=== PATIENT | female | born 1970 | race Caucasian/White ===

== ENCOUNTER 2017-07-25 09:03 | Emergency (ER) | payer BC, SELFPAY | END 2017-07-25 09:33 | disposition home or self-care (01) | PROVIDERS: Emergency Provider Nurse Practitioner Family; Visit Provider Nurse Practitioner Family | DX: J06.9 Acute upper respiratory infection, unspecified (principal); I10 Essential (primary) hypertension; I20.8 Other forms of angina pectoris; E78.5 Hyperlipidemia, unspecified; F17.210 Nicotine dependence, cigarettes, uncomplicated | CPT/HCPCS: 87880; 99201 ==

== ENCOUNTER 2017-08-17 18:57 | Emergency (ER) | payer BC, SELFPAY ==
[2017-08-17 19:08] VITALS: BP 196/135; PULSE 114; RESP 20; TEMP 37.4; O2SAT 95; BMI 30.9
--- NOTE | 2017-08-17 19:11 | HMH.EDUTC ---
[facility] [place]ression: Sore throat (viral) Disposition: Home, Self-Care Condition on Discharge: Good Instructions: Sore Throat Prescriptions: diphenhydrAMINE HCl [Benadryl Allergy] 25 mg PO BID 5 Days #10 tab Fluticasone Propionate [Flonase Allergy Relief NS] 1 spray NS BID 10 Days #1 bot predniSONE [Prednisone 20mg Tab] 20 mg PO BID 5 Days #10 tab Referrals: Provider,Referral, MD [Primary Care Provider] - Time of Disposition: 19:42 Medical Decision Making - Medical Records Medical records reviewed: Yes: I reviewed the patient's medical records. Vital Signs: 08/17/17 19:08 Temperature 99.4 F Temperature Source Temporal Artery Scan Pulse Rate [Brachial] 114 H Respiratory Rate 20 Blood Pressure [Right Arm] 196/135 Blood Pressure Mean [Right Arm] 155 Blood Pressure Source [Right Arm] Automatic Cuff Blood Pressure Position [Right Arm] Sitting 02 Sat by Pulse Oximetry 95 Oxygen Delivery Method Room Air - Lab Data Lab results reviewed: Yes: I reviewed the patient's lab results. Lab Results 08/17/17 19:22: Strep [facility] Negative Orders (Tests/Meds): ORDERS Category Date Time Status Strep Screen Confirmation Stat Micro 08/17/17 19:22 Received - Jesus Inquiry Pt receiving controlled substance: No [facility] [place] - General Stated complaint: sore throat Mode of Arrival: Ambulatory Source of Information: Patient Limitations: No Limitations Description of Symptoms (Recalled from Triage Doc. by RN): throat has been burning for 2 days. pt has not taken her bp meds today. HEENT Symptoms (Recalled from RN notes): Yes Resp Symptoms (Recalled from RN notes): No Skin Symptoms (Recalled from RN notes): No MS Symptoms (Recalled from RN notes): No Functional Status (Recalled from RN notes): na - History of Present Illness Provider Complaint: Sore throat x 2 days. Throat is raw and burning. Has had nosebleeds also. Denies ear pain. Denies cough. Not sure about fever. Denies N/V/D. Has been exposed to strep at work. Onset (ago): day(s) (2) Location: mouth Quality: burning Consistency: constant Relieving factors: none Exacerbating factors: eating Associated symptoms: denies other symptoms Treatments prior to arrival: none - Related Data Home Medications Medication Instructions Recorded Confirmed Lisinopril [Lisinopril 20mg Tab] 20 mg PO DAILY 08/17/17 08/17/17 Previous Rx's Medication Instructions Recorded Fluticasone Propionate [Flonase 1 spray NS BID 10 Days #1 bot 08/17/17 Allergy Relief NS] diphenhydrAMINE HCl [Benadryl 25 mg PO BID 5 Days #10 tab 08/17/17 Allergy] predniSONE [Prednisone 20mg 20 mg PO BID 5 Days #10 tab 08/17/17 Tab] Allergies Allergy/AdvReac Type Severity Reaction Status Date / Time codeine Allergy Mild Unverified 07/17/17 14:51 Iodinated Contrast Media - Allergy Mild Unverified 07/17/17 14:51 Oral and [Iodinated Contrast Media - IV Dye] venom-honey bee Allergy Mild Unverified 07/17/17 14:51 [bee venom (honey bee)] - Worker's Comp Is this a Worker's Comp case?: No H History I have reviewed the patient's past medical history: Yes - *Social History Smoking Status: Current every day smoker Tobacco Type: cigarettes Alcohol Intake: never - Psychiatric History Expresses thoughts of harming self/others: None Suicide Plan Description: No Plan ROS Obtained: Yes All systems reviewed & no additional complaints - ENT Ears, Nose, Mouth, and Throat: Reports epistaxis, Reports sore throat Physical Exam - General General appearance: alert, in no apparent distress - Head Head exam: atraumatic, normocephalic, normal inspection - Eye Eye exam: Present: normal appearance, PERRL, EOMI - ENT ENT exam: Present: normal exam, normal oropharynx, mucous membranes moist, TM's normal bilaterally, normal external ear exam - Expanded ENT Exam Nose exam: Present: sinus tenderness
--- NOTE | 2017-08-17 19:14 | ED_ITS ---
[facility] [place]: Sore throat (viral) Disposition: Home, Self-Care Condition on Discharge: Good Instructions: Sore Throat Prescriptions: diphenhydrAMINE HCl [Benadryl Allergy] 25 mg PO BID 5 Days #10 tab Fluticasone Propionate [Flonase Allergy Relief NS] 1 spray NS BID 10 Days #1 bot predniSONE [Prednisone 20mg Tab] 20 mg PO BID 5 Days #10 tab Referrals: Provider,Referral, MD [Primary Care Provider] - Time of Disposition: 19:42 Medical Decision Making - Medical Records Medical records reviewed: Yes: I reviewed the patient's medical records. Vital Signs: 08/17/17 19:08 Temperature 99.4 F Temperature Source Temporal Artery Scan Pulse Rate [Brachial] 114 H Respiratory Rate 20 Blood Pressure [Right Arm] 196/135 Blood Pressure Mean [Right Arm] 155 Blood Pressure Source [Right Arm] Automatic Cuff Blood Pressure Position [Right Arm] Sitting 02 Sat by Pulse Oximetry 95 Oxygen Delivery Method Room Air - Lab Data Lab results reviewed: Yes: I reviewed the patient's lab results. Lab Results 08/17/17 19:22: Strep [facility] Negative Orders (Tests/Meds): ORDERS Category Date Time Status Strep Screen Confirmation Stat Micro 08/17/17 19:22 Received - Jesus Inquiry Pt receiving controlled substance: No [facility] [place] - General Stated complaint: sore throat Mode of Arrival: Ambulatory Source of Information: Patient Limitations: No Limitations Description of Symptoms (Recalled from Triage Doc. by RN): throat has been burning for 2 days. pt has not taken her bp meds today. HEENT Symptoms (Recalled from RN notes): Yes Resp Symptoms (Recalled from RN notes): No Skin Symptoms (Recalled from RN notes): No MS Symptoms (Recalled from RN notes): No Functional Status (Recalled from RN notes): na - History of Present Illness Provider Complaint: Sore throat x 2 days. Throat is raw and burning. Has had nosebleeds also. Denies ear pain. Denies cough. Not sure about fever. Denies N/V/D. Has been exposed to strep at work. Onset (ago): day(s) (2) Location: mouth Quality: burning Consistency: constant Relieving factors: none Exacerbating factors: eating Associated symptoms: denies other symptoms Treatments prior to arrival: none - Related Data Home Medications Medication Instructions Recorded Confirmed Lisinopril [Lisinopril 20mg Tab] 20 mg PO DAILY 08/17/17 08/17/17 Previous Rx's Medication Instructions Recorded Fluticasone Propionate [Flonase 1 spray NS BID 10 Days #1 bot 08/17/17 Allergy Relief NS] diphenhydrAMINE HCl [Benadryl 25 mg PO BID 5 Days #10 tab 08/17/17 Allergy] predniSONE [Prednisone 20mg 20 mg PO BID 5 Days #10 tab 08/17/17 Tab] Allergies Allergy/AdvReac Type Severity Reaction Status Date / Time codeine Allergy Mild Unverified 07/17/17 14:51 Iodinated Contrast Media - Allergy Mild Unverified 07/17/17 14:51 Oral and [Iodinated Contrast Media - IV Dye] venom-honey bee Allergy Mild Unverified 07/17/17 14:51 [bee venom (honey bee)] - Worker's Comp Is this a Worker's Comp case?: No H History I have reviewed the patient's past medical history: Yes - *Social History Sm
[2017-08-17 19:27] LABS: UTC Strep Screen (Rapid) Negative (Negative)
== END 2017-08-17 19:46 | disposition home or self-care (01) ==
PROVIDERS: Emergency Provider Physician Assistant
DX: J02.9 Acute pharyngitis, unspecified (principal); I10 Essential (primary) hypertension
CPT/HCPCS: 87880; 99202

== ENCOUNTER 2017-10-05 09:04 | Emergency (ER) | payer BC, SELFPAY ==
[2017-10-05 09:13] VITALS: BP 173/103; PULSE 72; RESP 20; TEMP 36.6; O2SAT 98; BMI 30.9
--- NOTE | 2017-10-05 09:25 | HMH.EDUTC ---
[facility] [place] Clinical Impression: Impetigo Disposition: Home, Self-Care Condition on Discharge: Good Instructions: Impetigo, DI for Impetigo Additional Instructions: Keep area clean and dry Apply Mupirocin 2% ointment q8hrs x 5 days Take medication as prescribed You was given information about dermatology, if symptoms do not began to improve in 24-48 hours call Dermatology and make appointment Follow up with family doctor in 12-24 hours if symptoms worsen, redness worsens you began to see red streaks from the area or warmth Straight to the ER if any life threatening symptoms Prescriptions: cephALEXin [Keflex 500mg Cap] 500 mg PO QID #40 cap Mupirocin [Mupirocin 2% UD oint 1gm Topical syr] 1 applic TP TID #1 tube Referrals: Provider,Referral, MD [Primary Care Provider] - Forms: Work/School Release Time of Disposition: 09:42 Medical Decision Making - Medical Records Medical records reviewed: Yes: I reviewed the patient's medical records. Vital Signs: 10/05/17 09:13 Temperature 97.8 F Temperature Source Temporal Artery Scan Pulse Rate [Right] 72 Respiratory Rate 20 Blood Pressure [Right Arm] 173/103 Blood Pressure Mean [Right Arm] 126 Blood Pressure Source [Right Arm] Automatic Cuff Blood Pressure Position [Right Arm] Sitting 02 Sat by Pulse Oximetry 98 Oxygen Delivery Method Room Air - Jesus Inquiry Pt receiving controlled substance: No Jesus was queried for this patient: No [facility] [place] HPI - General Stated complaint: blisters on back and neck Mode of Arrival: Ambulatory Source of Information: Patient Limitations: No Limitations Description of Symptoms (Recalled from Triage Doc. by RN): STATES BLISTERS ON BACK AND NECK HEENT Symptoms (Recalled from RN notes): No Resp Symptoms (Recalled from RN notes): No Skin Symptoms (Recalled from RN notes): Yes MS Symptoms (Recalled from RN notes): No Functional Status (Recalled from RN notes): n - History of Present Illness Provider Complaint: Patient state that she has several little bump like area that came up on her shoulders 3 days ago and they itched and she scratched them causing them to bust and make sore like areas on her shoulders and on her back. 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 - Related Data Previous Rx's Medication Instructions Recorded Fluticasone Propionate [Flonase 1 spray NS BID 10 Days #1 bot 08/17/17 Allergy Relief NS] diphenhydrAMINE HCl [Benadryl 25 mg PO BID 5 Days #10 tab 08/17/17 Allergy] predniSONE [Prednisone 20mg 20 mg PO BID 5 Days #10 tab 08/17/17 Tab] lisinopril 20 mg tablet 20 mg PO DAILY #30 tab 09/21/17 Mupirocin [Mupirocin 2% UD oint 1 applic TP TID #1 tube 10/05/17 1gm Topical syr] cephALEXin [Keflex 500mg Cap] 500 mg PO QID #40 cap 10/05/17 Allergies Allergy/AdvReac Type Severity Reaction Status Date / Time codeine Allergy Mild Verified 10/05/17 09:18 Iodinated Contrast Media - Allergy Mild Unverified 07/17/17 14:51 Oral and [Iodinated Contrast Media - IV Dye] venom-honey bee Allergy Mild Unverified 07/17/17 14:51 [bee venom (honey bee)] - Worker's Comp Is this a Worker's Comp case?: No H History I have reviewed the patient's past medical history: Yes Medical History: Reports:: Hypertension - Social History Smoking Status: Current every day smoker Tobacco Type: cigarettes Alcohol Intake: never - Psychiatric History Expresses thoughts of harming self/others: None Suicide Plan Description: No Plan ROS Obtained: Yes All systems reviewed & no additional complaints - Allergic/Immunologic Comments: Reports scabbed over area that started out as blister that when she scratched them turned into scabbed over sores Physical Exam - General General appearance: alert, in no apparent distress - Respira
--- NOTE | 2017-10-05 09:29 | ED_ITS ---
[facility] [place] Clinical Impression: Impetigo Disposition: Home, Self-Care Condition on Discharge: Good Instructions: Impetigo, DI for Impetigo Additional Instructions: Keep area clean and dry Apply Mupirocin 2% ointment q8hrs x 5 days Take medication as prescribed You was given information about dermatology, if symptoms do not began to improve in 24-48 hours call Dermatology and make appointment Follow up with family doctor in 12-24 hours if symptoms worsen, redness worsens you began to see red streaks from the area or warmth Straight to the ER if any life threatening symptoms Prescriptions: cephALEXin [Keflex 500mg Cap] 500 mg PO QID #40 cap Mupirocin [Mupirocin 2% UD oint 1gm Topical syr] 1 applic TP TID #1 tube Referrals: Provider,Referral, MD [Primary Care Provider] - Forms: Work/School Release Time of Disposition: 09:42 Medical Decision Making - Medical Records Medical records reviewed: Yes: I reviewed the patient's medical records. Vital Signs: 10/05/17 09:13 Temperature 97.8 F Temperature Source Temporal Artery Scan Pulse Rate [Right] 72 Respiratory Rate 20 Blood Pressure [Right Arm] 173/103 Blood Pressure Mean [Right Arm] 126 Blood Pressure Source [Right Arm] Automatic Cuff Blood Pressure Position [Right Arm] Sitting 02 Sat by Pulse Oximetry 98 Oxygen Delivery Method Room Air - Jesus Inquiry Pt receiving controlled substance: No Jesus was queried for this patient: No [facility] [place] - General Stated complaint: blisters on back and neck Mode of Arrival: Ambulatory Source of Information: Patient Limitations: No Limitations Description of Symptoms (Recalled from Triage Doc. by RN): STATES BLISTERS ON BACK AND NECK HEENT Symptoms (Recalled from RN notes): No Resp Symptoms (Recalled from RN notes): No Skin Symptoms (Recalled from RN notes): Yes MS Symptoms (Recalled from RN notes): No Functional Status (Recalled from RN notes): n - History of Present Illness Provider Complaint: Patient state that she has several little bump like area that came up on her shoulders 3 days ago and they itched and she scratched them causing them to bust and make sore like areas on her shoulders and on her back. 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 - Related Data Previous Rx's Medication Instructions Recorded Fluticasone Propionate [Flonase 1 spray NS BID 10 Days #1 bot 08/17/17 Allergy Relief NS] diphenhydrAMINE HCl [Benadryl 25 mg PO BID 5 Days #10 tab 08/17/17 Allergy] predniSONE [Prednisone 20mg 20 mg PO BID 5 Days #10 tab 08/17/17 Tab] lisinopril 20 mg tablet 20 mg PO DAILY #30 tab 09/21/17 Mupirocin [Mupirocin 2% UD oint 1 applic TP TID #1 tube 10/05/17 1gm Topical syr] cephALEXin [Keflex 500mg Cap] 500 mg PO QID #40 cap 10/05/17 Allergies Allergy/AdvReac Type Severity Reaction Status Date / Time codeine Allergy Mild Verified 10/05/17 09:18 Iodinated Contrast Media - Allergy Mild Unverified 07/17/17 14:51 Oral and [Iodinated Contrast Media - IV Dye] venom-honey bee Allergy Mild Unverified 07/17/17 14:51 [bee venom (honey bee)] - Worker's Comp Is this a Worker's Com
[2017-10-05 09:47] VITALS: BP 170/92; PULSE 72; RESP 20; TEMP 36.6
== END 2017-10-05 09:50 | disposition home or self-care (01) ==
PROVIDERS: Emergency Provider Nurse Practitioner
DX: L01.00 Impetigo, unspecified (principal); I10 Essential (primary) hypertension; Z88.6 Allergy status to analgesic agent
CPT/HCPCS: 99202

== ENCOUNTER 2017-10-07 09:35 | Emergency (ER) | payer BC, SELFPAY ==
[2017-10-07 09:54] VITALS: PULSE 84; RESP 20; TEMP 36.9; O2SAT 98; BMI 30.9
[2017-10-07 10:01] VITALS: BP 166/99; PULSE 84; RESP 20; TEMP 36.9; O2SAT 98
--- NOTE | 2017-10-07 10:02 | HMH.EDUTC ---
[facility] [place] Dis[place] Clinical Impression: Skin problem, Impetigo Disposition: Home, Self-Care Condition on Discharge: Good Instructions: Impetigo, DI for Impetigo Additional Instructions: Continue to use Medication you was given on previous visit as it appears the areas are healing and noted improvement seen Follow up with Dermatology as recommended for further treatment and evaluation if symptoms persist and dont improve Choose family doctor from provided list and follow up in 12-48 hours for evaluation if symptoms do not improve or worsen If any life threatening symptoms go straight to ER Follow up with Cardiology due to blood pressure being elevated REturn if needed Referrals: Provider,Referral, MD [Primary Care Provider] - Priyanka Lyles MD [Consulting Physician] - Avni Mireles MD [Staff Physician] - Forms: Work/School Release Time of Disposition: 10:16 Medical Decision Making - Medical Records Medical records reviewed: Yes: I reviewed the patient's medical records. Vital Signs: 10/07/17 09:54 10/07/17 10:01 Temperature 98.4 F 98.4 F Temperature Source Temporal Artery Scan Temporal Artery Scan Pulse Rate [Right Brachial] 84 84 Respiratory Rate 20 20 Blood Pressure [Right Arm] 166/99 Blood Pressure Mean [Right Arm] 121 Blood Pressure Source [Right Arm] Automatic Cuff Blood Pressure Position [Right Arm] Sitting 02 Sat by Pulse Oximetry 98 98 Oxygen Delivery Method Room Air Room Air - Jesus Inquiry Pt receiving controlled substance: No Jesus was queried for this patient: No - Reevaluation(s) Time: 10:09 Reevaluation #1: Again discussed with patient to follow up with Dermatology if symptoms persist and seek family doctor for evaluation and follow up Patient appeared nervous attempted to give patient Visteril 25mg to see if that would help with itching but patient refused State that she has taken that medication before and it makes her sleepy. Patient educated that it medication may help with itching and still refused. No rash noted on hands just dry skin. Lesions on shoulder and back appear to be healing and drying up with medication that she was given on Sunday Also educated patient to follow up with Cardiology due to blood pressure being elevated on last 2 visits [facility] [place] HPI - General Stated complaint: Blisters all over body Mode of Arrival: Family Vehicle Source of Information: Patient Limitations: No Limitations Description of Symptoms (Recalled from Triage Doc. by RN): C/O BLISTERS ON BODY X 4 DAYS HEENT Symptoms (Recalled from RN notes): No Resp Symptoms (Recalled from RN notes): No Skin Symptoms (Recalled from RN notes): Yes (BLISTERS ON BODY) MS Symptoms (Recalled from RN notes): No Functional Status (Recalled from RN notes): N/A - History of Present Illness Provider Complaint: Patient state that she was seen here on Sunday for the same thing State that she had blister like area on her shoulder and back State that she was given medication and she has been using the medication and the places are looking better but she went to work today and they was itching a little and they sent her home and wanted her to get them rechecked - Related Data Previous Rx's Medication Instructions Recorded Fluticasone Propionate [Flonase 1 spray NS BID 10 Days #1 bot 08/17/17 Allergy Relief NS] diphenhydrAMINE HCl [Benadryl 25 mg PO BID 5 Days #10 tab 08/17/17 Allergy] predniSONE [Prednisone 20mg 20 mg PO BID 5 Days #10 tab 08/17/17 Tab] lisinopril 20 mg tablet 20 mg PO DAILY #30 tab 09/21/17 Mupirocin [Mupirocin 2% UD oint 1 applic TP TID #1 tube 10/05/17 1gm Topical syr] cephALEXin [Keflex 500mg Cap] 500 mg PO QID #40 cap 10/05/17 Allergies Allergy/AdvReac Type Severity Reaction Status Date / Time codeine Allergy Mild Verified 10/05/17 09:18 Iodinated Contrast Media - Allergy Mild Verified 10/07/17 09:59 Oral and [Iodinated Contrast Media - IV Dye] venom-ho
--- NOTE | 2017-10-07 10:06 | ED_ITS ---
[facility] [place]: Skin problem, Impetigo Disposition: Home, Self-Care Condition on Discharge: Good Instructions: Impetigo, DI for Impetigo Additional Instructions: Continue to use Medication you was given on previous visit as it appears the areas are healing and noted improvement seen Follow up with Dermatology as recommended for further treatment and evaluation if symptoms persist and dont improve Choose family doctor from provided list and follow up in 12-48 hours for evaluation if symptoms do not improve or worsen If any life threatening symptoms go straight to ER Follow up with Cardiology due to blood pressure being elevated REturn if needed Referrals: Provider,Referral, MD [Primary Care Provider] - Priyanka Lyles MD [Consulting Physician] - Avni Mireles MD [Staff Physician] - Forms: Work/School Release Time of Disposition: 10:16 Medical Decision Making - Medical Records Medical records reviewed: Yes: I reviewed the patient's medical records. Vital Signs: 10/07/17 09:54 10/07/17 10:01 Temperature 98.4 F 98.4 F Temperature Source Temporal Artery Scan Temporal Artery Scan Pulse Rate [Right Brachial] 84 84 Respiratory Rate 20 20 Blood Pressure [Right Arm] 166/99 Blood Pressure Mean [Right Arm] 121 Blood Pressure Source [Right Arm] Automatic Cuff Blood Pressure Position [Right Arm] Sitting 02 Sat by Pulse Oximetry 98 98 Oxygen Delivery Method Room Air Room Air - Jesus Inquiry Pt receiving controlled substance: No Jesus was queried for this patient: No - Reevaluation(s) Time: 10:09 Reevaluation #1: Again discussed with patient to follow up with Dermatology if symptoms persist and seek family doctor for evaluation and follow up Patient appeared nervous attempted to give patient Visteril 25mg to see if that would help with itching but patient refused State that she has taken that medication before and it makes her sleepy. Patient educated that it medication may help with itching and still refused. No rash noted on hands just dry skin. Lesions on shoulder and back appear to be healing and drying up with medication that she was given on Sunday Also educated patient to follow up with Cardiology due to blood pressure being elevated on last 2 visits [facility] [place] - General Stated complaint: Blisters all over body Mode of Arrival: Family Vehicle Source of Information: Patient Limitations: No Limitations Description of Symptoms (Recalled from Triage Doc. by RN): C/O BLISTERS ON BODY X 4 DAYS HEENT Symptoms (Recalled from RN notes): No Resp Symptoms (Recalled from RN notes): No Skin Symptoms (Recalled from RN notes): Yes (BLISTERS ON BODY) MS Symptoms (Recalled from RN notes): No Functional Status (Recalled from RN notes): N/A - History of Present Illness Provider Complaint: Patient state that she was seen here on Sunday for the same thing State that she had blister like area on her shoulder and back State that she was given medication and she has been using the medication and the places are looking better but she went to work today and they was itching a little and they sent her home and wanted her to get them rechecked - Related Data Previous Rx's Medication Instructions Recorded Fluticasone Propionate [Flonase 1 spray NS BID 10 Days #1 bot 08/17/17 Allergy Relief NS] diphenhydrAMINE HCl [Benadryl 25 mg PO BID 5 Days #10 tab 08/17/17 Allergy] predniSONE [Predni
[2017-10-07 10:21] VITALS: BP 166/99; PULSE 84; RESP 20; TEMP 36.9; O2SAT 98
== END 2017-10-07 10:22 | disposition home or self-care (01) ==
PROVIDERS: Emergency Provider Nurse Practitioner
DX: L01.00 Impetigo, unspecified (principal); I10 Essential (primary) hypertension; F17.210 Nicotine dependence, cigarettes, uncomplicated
CPT/HCPCS: 99202

== ENCOUNTER → 2018-05-21 11:07 | Outpatient (CLI) | payer MEDICAID, SELFPAY ==
--- NOTE | 2018-05-21 11:09 | NM_ITS ---
CARDIOLITE SPECT MYOCARDIAL PERFUSION SCAN, REST AND STRESS: EXERCISE STRESS [facility] REVIEW QGS EF AND WALL MOTION EVALUATION: QPS - PERFUSION EVALUATION HISTORY: Chest pain, SOB, HTN, CAD, Tobacco use DOSE: 10.34 mCi technetium 99m mibi intravenously at rest followed by 31.6 mCi technetium 99m mibi following the intravenous ministration of 0.4 mg of Lexiscan. Resting blood pressure is 143/71. Stress blood pressure 157/96. FINDINGS: Ejection fraction is calculated to be 59%. Stress images reveal decreased activity in the anterior wall while rest images reveal uniform myocardial activity IMPRESSION: High risk abnormal stress test with reversible anterior wall ischemia. Normal ejection fraction normal wall motion
--- NOTE | 2018-05-21 12:23 | HMH.ITSHM ---
Current Home Medications as stated by this patient Ludy Cevallos or contracts representative. []METOPROLOL LISINOPRIL ATORVASTATIN ASA AMLODIPINE
== END ==
PROVIDERS: PCP Emergency Medicine; Visit Provider Internal Medicine
DX: I25.10 Atherosclerotic heart disease of native coronary artery without angina pectoris (principal); R06.00 Dyspnea, unspecified; I20.9 Angina pectoris, unspecified; E78.5 Hyperlipidemia, unspecified; I10 Essential (primary) hypertension
CPT/HCPCS: 78452; 93017; A9502; J2785

== ENCOUNTER → 2018-10-23 09:50 | Outpatient (CLI) | payer MEDICAID, SELFPAY ==
[2018-10-23 13:13] LABS: Alanine Aminotransferase 36 U/L (12-78); Albumin Level 3.6 gm/dL (3.4-5.0); Alkaline Phosphatase 110 U/L (46-116); Anion Gap 15.9 mEq/L (5-15); Aspartate Amino Transferase 22 U/L (15-37); Bilirubin,Direct 0.1 mg/dL (0.0-0.2); Bilirubin,Indirect 0.2 mg/dL (0.0-0.9); Bilirubin,Total 0.3 mg/dL (0.2-1.0); Blood Urea Nitrogen 8 mg/dL (7-18); Calcium 9.2 mg/dL (8.5-10.1); Carbon Dioxide 26 mmol/L (21.0-32.0); Chloride 104 mmol/L (98-107); Chol/HDL Ratio 4.7 (1-3.5); Cholesterol 241 mg/dL (140-200); Creatinine,Serum 0.72 mg/dL (0.55-1.02); Estimated Glomerular Filt Rate 86 ml/min (>60); GFR (African American) 104 ML/MIN (>60); Glucose 99 mg/dL (74-106); HDL Cholesterol 51 mg/dL (29-89); LDL Cholesterol 163 mg/dL (0-130); Potassium 4.9 mmoL/L (3.5-5.1); Sodium 141 mmol/L (136-145); Total Protein,Serum 7.3 gm/dL (6.4-8.2); Triglycerides 134 mg/dL (30-200); VLDL Cholesterol 27 mg/dL (0-40)
== END ==
PROVIDERS: Visit Provider Urology
DX: E78.5 Hyperlipidemia, unspecified (principal); I10 Essential (primary) hypertension; I20.9 Angina pectoris, unspecified; I25.118 Atherosclerotic heart disease of native coronary artery with other forms of angina pectoris; R06.09 Other forms of dyspnea
CPT/HCPCS: 36415; 80048; 80061; 80076

== ENCOUNTER → 2018-11-18 08:46 | Outpatient (CLI) | payer MEDICAID, SELFPAY ==
[2018-11-18 11:08] LABS: Anion Gap 11.9 mEq/L (5-15); Blood Urea Nitrogen 7 mg/dL (7-18); Calcium 9.4 mg/dL (8.5-10.1); Carbon Dioxide 29 mmol/L (21.0-32.0); Chloride 105 mmol/L (98-107); Creatinine,Serum 0.83 mg/dL (0.55-1.02); Estimated Glomerular Filt Rate 73 ml/min (>60); GFR (African American) 88 ML/MIN (>60); Glucose 105 mg/dL (74-106); Potassium 4.9 mmoL/L (3.5-5.1); Sodium 141 mmol/L (136-145)
== END ==
PROVIDERS: Visit Provider Internal Medicine Cardiovascular Disease
DX: R06.09 Other forms of dyspnea (principal); I20.9 Angina pectoris, unspecified; R94.31 Abnormal electrocardiogram [ECG] [EKG]; I25.118 Atherosclerotic heart disease of native coronary artery with other forms of angina pectoris; E78.5 Hyperlipidemia, unspecified; I10 Essential (primary) hypertension
CPT/HCPCS: 36415; 80048; 83880

== ENCOUNTER → 2018-11-28 07:34 | Outpatient (CLI) | payer MEDICAID, SELFPAY ==
--- NOTE | 2018-11-28 07:46 | CA_ITS ---
PROCEDURE: 2-D M-mode and color Doppler study INDICATIONS FOR THE TEST: Chest painX COPD Heart Murmur Tobacco SmokingX Palpitations Fatigue Syncope Edema HypertensionXDiabetes Mellitus Rheumatic Fever SOBXDOEXObesityXHyperlipidemiaX Family History HD Additional History PATIENT INFORMATION HEIGHT: 64 WEIGHT:179 GENDER: Female B/P:122/79 2-D/M-MODE INTERPRETATION: 2-D MEASUREMENTS OBSERVED VALUES IN CMS Right Ventricular Dimension (RVDd) 2.3 Interventricular Septum (Thickness)(IVsd) 1.0 Left Ventricular Internal Dimensions(LVIDd) 4.7 Left Ventricular Posterior Wall (Thickness)(LVPWd) 1.0 Aortic Root 3.3 Aortic Cusp Separation 1.8 Left Atrial Dimensions (LAD) 2.8 2D 1. Left atrium is mildly enlarged, left ventricle is normal size, mild qualitative concentric left ventricular hypertrophy, visually estimated ejection fraction 55% with no regional wall motion abnormality. 2. The right atrium and right ventricle are mildly enlarged with normal contractility. 3. The aortic valve is minimally thickened and fibrosed. 4. The mitral and tricuspid valve are grossly normal. 5. The pulmonic valve is poorly present. 6. No significant pericardial effusion noted. DOPPLER INTERROGATION: Doppler interrogation of the aortic, mitral and tricuspid valvular presence of mild mitral and tricuspid regurgitation, tricuspid regurgitation jet velocity is inadequate for calculation of the right ventricular systolic pressure, grade 1 diastolic dysfunction seen with tissue Doppler evidence of raised left atrial pressure. Inferior vena cava is not well visualized. CONCLUSION: 1. Mildly enlarged left atrium, normal left ventricular size, mild qualitative concentric left ventricular hypertrophy, visually estimated ejection fraction 55% with no regional wall motion abnormality, grade 1 diastolic dysfunction seen with tissue Doppler evidence of raised left atrial pressure. 2. Early enlarged right ventricle with normal contractility. 3. Mild mitral and tricuspid regurgitation 4. No significant pericardial effusion noted.
== END ==
PROVIDERS: Visit Provider Internal Medicine Cardiovascular Disease
DX: I25.118 Atherosclerotic heart disease of native coronary artery with other forms of angina pectoris (principal); R06.09 Other forms of dyspnea; R94.31 Abnormal electrocardiogram [ECG] [EKG]; I10 Essential (primary) hypertension; E78.5 Hyperlipidemia, unspecified
CPT/HCPCS: 93306

== ENCOUNTER → 2019-06-10 11:53 | Outpatient (CLI) | payer OTHER, SELFPAY ==
--- NOTE | 2019-06-10 | CA_ITS ---
APPROVED REPORT Exam: Pharmacologic Technologist: Clarita Alcocer Ht: 5 ft 4 in Wt: 180 lbs BSA: 1.87 m2 HR: 90 bpm BP: 161/109 mmHg Indications: Chest pain Medical History Medications: Lisinopril,,,,, Furosemide (LASIX),,,,, Isosorbide,,,,, Aspirin,,,,, Metoprolol,,,,, Atorvastatin,,,,, Flonase,,,,, Albuterol,,,,, SpirOnolactone,,,,, Ranolazine,,,,, Stress Test Details Test: LEXISCAN HR Resting HR: 90 bpm Max Heart Rate (APMHR): 170 bpm Max HR Achieved: 124 bpm Target HR (85% APMHR): 144 bpm % of APMHR: 72 Recovery HR: 87 bpm BP Resting BP: 161.0/109.0 mmHg Max BP: 179.0/111.0 mmHg Recovery BP: 150.0/98.0 mmHg ECG Clinical Exercise duration: 04:01 min Highest Stage Achieved: Exercise capacity: 1.0 METs Stress ECG Conclusion Resting ECG: Sinus Rhythm Lexiscan portion completed. Symptoms: Shortness of breath at peak infusion. Resolved in recovery. Arrhythmias/Ectopy: No ectopy ST-T Changes: Less than 1.[address] depression. Conclusion: Images to follow. Electronically signed by : Adriano Obrien, 06/11/2019 05:45:42
--- NOTE | 2019-06-10 11:56 | NM_ITS ---
APPROVED REPORT Exam: Nuclear Stress Test Indication: chest pain Patient Location: Outpatient Stress Tech: Clarita Alcocer PA Tech:Debbi GallowaySATHISHT, RT (R)(N) Ht: 5 ft 4 in Wt: 180 lbs Bra Size: 40d HR: 90 bpm BP: 161/109 mmHg BSA: 1.87 m2 BMI: 30.8 History: chest pain Procedure: Patient received a 0.4 mg of intravenous Lexiscan, resting heart rate 90 bpm, resting blood pressure 161/109 mmHg, with Lexiscan maximum heart rate achived was 112 bpm which is Less than 85 % of the maximum predicted heart rate and blood pressure was 171/111 mmHg. With Lexiscan, patient denied any complaint of chest pain. Electrocardiogram Resting electrocardiogram showed sinus rhythm, with Lexiscan there is less than 1.[address] segment depression noted from the baseline EKG. The EKG portion of the Lexiscan Myoview is nondiagnostic. Cardiac Stress and Resting SPECT Images: Cardiac Stress and Resting SPECT images were obtained using technetium 99m Myoview 31.4 mCi stress and 10.20 mCi at rest. Gated SPECT with analysis of segmental wall motion and calculation of the ejection fraction also done. Cardiac stress and resting SPECT images show uniform myocardial activity without segmental perfusion abnormality, computer derived ejection fraction is over 65% with no regional wall motion abnormality, right ventricle is normal size and contractility. Conclusion: 1. The EKG portion of the Lexiscan Myoview is nondiagnostic. 2. No scintigraphic evidence of reversible ischemia seen, computer derived ejection fraction is over 65% with no regional wall motion abnormality. Right ventricle is normal size and contractility. 3. Normal Lexiscan Myoview study. Electronically signed by : Adriano Obrien, 06/11/2019 05:47:29
--- NOTE | 2019-06-10 14:08 | HMH.ITSHM ---
Current Home Medications as stated by this patient Ludy Cevallos or fundraising sale representative. []SPIRONOLACTONE RANOLAZINE METOPROLOL LISINOPRIL ISOSORBIDE FUROSEMIDE ATORVASTATIN ASA FLONASE ALBUTEROL
== END ==
PROVIDERS: Visit Provider Urology
DX: I20.9 Angina pectoris, unspecified (principal); E78.5 Hyperlipidemia, unspecified; I10 Essential (primary) hypertension; R06.00 Dyspnea, unspecified; R94.31 Abnormal electrocardiogram [ECG] [EKG]
CPT/HCPCS: 78452; 93017; A9502; J2785

== ENCOUNTER 2019-11-25 16:14 | Emergency (ER) | payer MEDICAID, SELFPAY ==
[2019-11-25 16:27] VITALS: BP 180/101; PULSE 89; RESP 19; TEMP 37.3; O2SAT 98; BMI 30.9
--- NOTE | 2019-11-25 16:33 | HMH.EDUTC ---
[facility] [place] Disposition Clinical Impression: Allergic rhinitis Qualifiers: Allergic rhinitis trigger: unspecified Allergic rhinitis seasonality: unspecified Qualified Code(s): J30.9 - Allergic rhinitis, unspecified Disposition: Home, Self-Care Condition on Discharge: Good Instructions: DI for Allergic Rhinitis, Allergic Rhinitis Additional Instructions: There is over the counter allergy eye drops may help with itching of eyes and watering of eyes *Use nasal spray as prescribed Follow up with PCP if no improvement or any worsening of symptoms Return if needed Straight to ER if any life threatening symptoms Make sure that you are taking your medication for your blood pressure as prescribed, your blood pressure was elevated in the [facility] today Prescriptions: Mometasone Furoate [Nasonex] 2 sprays NS DAILY #1 spray.pump Transmission Status: [facility] Forms: Work/School Release Time of Disposition: 16:52 Medical Decision Making - Jesus Inquiry Pt receiving controlled substance: No Jesus was queried for this patient: No Vital Signs: 11/25/19 16:27 Temperature 99.1 F Temperature Source Oral Pulse Rate [Right Brachial] 89 Respiratory Rate 19 Blood Pressure [Right Arm] 180/101 H Blood Pressure Mean [Right Arm] 127 Blood Pressure Source [Right Arm] Automatic Cuff Blood Pressure Position [Right Arm] Sitting 02 Sat by Pulse Oximetry 98 Oxygen Delivery Method Room Air - Reevaluation(s) Time: 16:52 Reevaluation #1: Patient blood pressure elevated in [place] discussed transfer to ED and patient declined Patient educated on importance in taking prescribed blood pressure medication [facility] [place] HPI - General Stated complaint: Possible sinus Inf Time Seen by Provider: 11/25/19 16:33 Mode of Arrival: Ambulatory Source of Information: Patient Limitations: No Limitations Description of Symptoms (Recalled from Triage Doc. by RN): PATIENT C/O NASAL DRAINAGE AND WATERY EYES X 2 DAYS; DENIES FEVER, NO KNOWN SICK CONTACTS HEENT Symptoms (Recalled from RN notes): Yes Resp Symptoms (Recalled from RN notes): No Skin Symptoms (Recalled from RN notes): No MS Symptoms (Recalled from RN notes): No Functional Status (Recalled from RN notes): WNL - History of Present Illness Provider Complaint: Patient state that she has been having nasal congestion and draiange and itchy watery eyes States that she has seasonal allergies and has been outside alot lately but not sure if it was that or sinus infection and wanted to get checked States that she hasnt been around anyone that is sick that she is aware of Denies sore throat, denies fever - Related Data Previous Rx's Medication Instructions Recorded Albuterol Sulfate [Albuterol HFA 1 - 2 puffs IH Q4-6H PRN #1 inh 10/19/18 Inhaler] aspirin 81 mg tablet,delayed 81 mg PO DAILY #30 tab 05/28/19 release atorvastatin 80 mg tablet 80 mg PO DAILY #30 tab 05/28/19 furosemide 40 mg tablet 40 mg PO DIRECTED #60 tab 05/28/19 lisinopril 20 mg tablet 20 mg PO DAILY #30 tab 05/28/19 metoprolol tartrate 50 mg tablet 50 mg PO BID #60 tab 05/28/19 ranolazine 500 mg tablet,extended 500 mg PO BID #60 tab 05/28/19 release,12 hr spironolactone 50 mg tablet 50 mg PO DAILY #30 tab 05/28/19 isosorbide mononitrate 60 mg 60 mg PO DAILY #30 tab 06/17/19 tablet,extended release 24 hr Ondansetron [Zofran 4mg ODT] 4 mg PO Q8HP PRN #10 tab.rapdis 09/06/19 Oseltamivir Phosphate [Tamiflu 75 mg PO BID #10 cap 09/06/19 75mg Capsule] Mometasone Furoate [Nasonex] 2 sprays NS DAILY #1 spray.pump 11/25/19 Allergies Allergy/AdvReac Type Severity Reaction Status Date / Time codeine Allergy Mild Verified 07/01/19 10:00 Iodinated Contrast Media Allergy Mild Verified 07/01/19 10:00 [Iodinated Contrast Media - IV Dye] venom-honey bee Allergy Mild Verified 07/01/19 10:00 [bee venom (honey bee)] - Worker's Comp Is this a Worker's Comp case?: No [facility] History - Hepa
[2019-11-25 17:00] VITALS: BP 180/101; PULSE 89; RESP 19; TEMP 37.3; O2SAT 98
== END 2019-11-25 17:05 | disposition home or self-care (01) ==
LOC: UTC 16:44
PROVIDERS: Emergency Provider Nurse Practitioner
DX: J30.2 Other seasonal allergic rhinitis (principal); I25.10 Atherosclerotic heart disease of native coronary artery without angina pectoris; J44.9 Chronic obstructive pulmonary disease, unspecified; I10 Essential (primary) hypertension; E78.5 Hyperlipidemia, unspecified; F17.210 Nicotine dependence, cigarettes, uncomplicated; Z88.5 Allergy status to narcotic agent; Z79.899 Other long term (current) drug therapy
CPT/HCPCS: 99201

== ENCOUNTER 2020-01-11 15:22 | Emergency (ER) | payer MEDICAID, SELFPAY ==
[2020-01-11 15:23] VITALS: BP 193/117; PULSE 108; RESP 19; TEMP 37.2; O2SAT 98; BMI 30.9
--- NOTE | 2020-01-11 15:42 | HMH.EDUTC ---
[facility] [place] Disposition Clinical Impression: Diarrhea Qualifiers: Diarrhea type: unspecified type Qualified Code(s): R19.7 - Diarrhea, unspecified URI (upper respiratory infection) Qualifiers: URI type: unspecified URI Qualified Code(s): J06.9 - Acute upper respiratory infection, unspecified Disposition: Home, Self-Care Condition on Discharge: Good Instructions: Sinusitis, Sore Throat, Diarrhea Additional Instructions: *Monitor Temp, Over the counter Motrin or Tylenol as directed/as needed Tylenol every 4 hours and Motrin every 6 hours (as long as your family doctor has told you that you can take it) for fever or pain. and straight to ER if unable to lower temp less than 101.0 after medication given *Warm salt water gargles may help to soothe the throat *Throat Lozenges *Warm fluids like tea with honey may help to soothe the throat *Sleep elevated *Humidifier/Vaporizer ? Drink extra fluids with and between meals. If you have difficulty drinking, try very small amounts of water or suck on ice chips. ? Avoid fruit juices, as these do not replace minerals and can actually increase diarrhea. ? Children and adults can use sports drinks to replenish electrolytes. Younger children and infants should use products formulated for children, like oral rehydration solutions. ? Eat food in small amounts and let your stomach recover. ? Get lots of rest. You may feel tired or weak. ? No greasy or fried foods for the next 24-48 hours BRAT diet Bananas Rice Apples and [place] ? Make sure to drink plenty of liquids ? Return if needed ? Straight to ER if any life threatening symptoms ? You was given an outpatient order for diarrhea panel, please collect specimen and bring back to outpatient lab then call back to the [facility] or follow up with family doctor for results Follow up IMMEDIATELY for new or worsening symptoms or no Noticeable improvement over the next 48-72 hours. 911 for difficulty breathing or swallowing Prescriptions: Azithromycin [Z-Canelo 250mg Tab*] 250 mg PO UD DOSE PK #6 tab Transmission Status: Pending to [facility] Referrals: Provider,Referral, MD [Primary Care Provider] - As needed Forms: Work/School Release Time of Disposition: 15:53 Medical Decision Making - Jesus Inquiry Pt receiving controlled substance: No Jesus was queried for this patient: No Vital Signs: 06/14/20 15:23 Temperature 98.9 F Temperature Source Oral Pulse Rate [Radial] 108 H Respiratory Rate 19 Blood Pressure [Right Arm] 193/117 H Blood Pressure Mean [Right Arm] 142 Blood Pressure Source [Right Arm] Automatic Cuff Blood Pressure Position [Right Arm] Sitting 02 Sat by Pulse Oximetry 98 Oxygen Delivery Method Room Air [facility] [place] HPI - General Stated complaint: cough,sore throat,Diarrhea Time Seen by Provider: 01/11/20 15:42 Mode of Arrival: Ambulatory Source of Information: Patient Limitations: No Limitations Description of Symptoms (Recalled from Triage Doc. by RN): sore throat, diarrhea, cough HEENT Symptoms (Recalled from RN notes): Yes Resp Symptoms (Recalled from RN notes): Yes Skin Symptoms (Recalled from RN notes): No MS Symptoms (Recalled from RN notes): No Functional Status (Recalled from RN notes): wnl - History of Present Illness Provider Complaint: Patient states that she has been having sore throat, cough, and diarrhea for several days that has continued to get worse States that today she wasnt feeling any better and having drainage in the back of his throat States that she has had diarrhea on and off today so she wasnt able to go to work and came in to get checked - Related Data Previous Rx's Medication Instructions Recorded Albuterol Sulfate [Albuterol HFA 1 - 2 puffs IH Q4-6H PRN #1 inh 10/19/18 Inhaler] aspirin 81 mg tablet,delayed 81 mg PO DAILY #30 tab 05/28/19 release atorvastatin 80 mg tablet 80 mg PO DAILY #30 tab 05/28/19 furosemide 40 mg tablet 40 mg PO DIRECTED #60 tab 05/28/19 lisinopril 20
[2020-01-11 16:01] VITALS: BP 193/101; PULSE 108; RESP 19; TEMP 37.2; O2SAT 98
== END 2020-01-11 16:03 | disposition home or self-care (01) ==
PROVIDERS: Emergency Provider Nurse Practitioner
DX: J06.9 Acute upper respiratory infection, unspecified (principal); F17.210 Nicotine dependence, cigarettes, uncomplicated; J44.9 Chronic obstructive pulmonary disease, unspecified; I25.10 Atherosclerotic heart disease of native coronary artery without angina pectoris; I10 Essential (primary) hypertension; R78.5 Finding of other psychotropic drug in blood
CPT/HCPCS: 99201

== ENCOUNTER → 2020-02-10 14:05 | Outpatient (CLI) | payer MEDICAID, SELFPAY ==
[2020-02-10 15:41] LABS: Alanine Aminotransferase 41 U/L (12-78); Albumin Level 3.9 g/dl (3.5-5.0); Alkaline Phosphatase 74 U/L (38-126); Aspartate Amino Transferase 41 U/L (14-36); Bilirubin,Direct 0.1 mg/dl (0.0-0.4); Bilirubin,Indirect 0.3 mg/dL (0.0-0.9); Bilirubin,Total 0.4 mg/dl (0.2-1.3); Bilirubin,Unconjugated 0.3 mg/dL (0.0-1.1); Cholesterol 224 mg/dl (140-200); Total Protein,Serum 6.8 g/dl (6.3-8.2); Triglycerides 265 mg/dl (30-150); VLDL Cholesterol 53 mg/dL (0-40)
[2020-02-10 15:42] LABS: HDL Cholesterol 58 mg/dl (40-60)
[2020-02-10 15:52] LABS: Direct LDL Cholesterol 144.46 mg/dL (100-129)
[2020-02-10 19:12] LABS: Chol/HDL Ratio 3.9 (1-3.5)
== END ==
PROVIDERS: Visit Provider Urology
DX: I25.118 Atherosclerotic heart disease of native coronary artery with other forms of angina pectoris (principal); R06.09 Other forms of dyspnea; E78.2 Mixed hyperlipidemia; I10 Essential (primary) hypertension
CPT/HCPCS: 36415; 80061; 80076

== ENCOUNTER 2020-02-16 05:34 | Emergency (ER) | payer MEDICAID, SELFPAY ==
[2020-02-16 05:36] VITALS: BP 164/70; PULSE 79; RESP 16; O2SAT 98
[2020-02-16 05:43] VITALS: BMI 30.9
[2020-02-16 05:44] VITALS: BP 173/93; PULSE 94; RESP 18; TEMP 36.5; O2SAT 97; BMI 27.3
--- NOTE | 2020-02-16 05:44 | XR_ITS ---
PROCEDURE: XR TIBIA FIBULA RT 2V CLINICAL INDICATION: fall Pain COMPARISON: XR KNEE RT 3V from 02/16/2020 FINDINGS: No fracture or dislocation. No lytic or blastic change. There is normal mineralization. The joint spaces are well-preserved. No significant degenerative/arthritic changes. No erosive changes evident. Other findings:None. IMPRESSION: No acute findings. Dictated by: Markie Merino MD 02/16/2020 08:00 Electronically signed by Markie Merino MD in [place] 02/16/2020 08:00
--- NOTE | 2020-02-16 05:55 | PC.NURSE ---
to rad via wc.
--- NOTE | 2020-02-16 06:10 | HMH.EDFALL ---
ED Disposition Clinical Impression: Right knee injury Qualifiers: Encounter type: initial encounter Qualified Code(s): S89.91XA - Unspecified injury of right lower leg, initial encounter Disposition: Home, Self-Care Condition on Discharge: Good Instructions: DI for Knee Pain Additional Instructions: ice and limited wt bearing and see ortho and pcp Prescriptions: Meloxicam [Mobic 15 mg tab] 15 mg PO DAILY #10 tab Transmission Status: Pending to [facility] Hydrocod/Acet 5/325 mg [[place] 5/325mg tablet] 1 tab PO Q6HP PRN #7 tab PRN Reason: Moderate To Severe Pain Prescription Printed Referrals: PCP,No [Primary Care Provider] - Leia Kong MD [Physician] - - Critical Care Critical Care Time: No Attestation: On 02/16/20, the high probability of a clinically significant, sudden or life threatening deterioration of the following system(s) required my full and direct attention, intervention and personal management. The time I documented below is in addition to time spent performing reported procedures but includes the following listed in this critical care notation. Medical Decision Making - Medical Records Medical records reviewed: Yes: I reviewed the patient's medical records. - Jesus Inquiry Pt receiving controlled substance: No Vital Signs: 02/16/20 05:36 02/16/20 05:44 Temperature 97.7 F Temperature Source Oral Pulse Rate [Right Brachial] 79 94 H Respiratory Rate 16 18 Blood Pressure [Right Arm] 164/70 H 173/93 H Blood Pressure Mean [Right Arm] 101 119 Blood Pressure Source [Right Arm] Manual Cuff/ Auscultation Automatic Cuff Blood Pressure Position [Right Arm] Sitting Sitting 02 Sat by Pulse Oximetry 98 97 Oxygen Delivery Method Room Air Room Air Orders (Tests/Meds): ORDERS Category Date Time Status XR knee RT 3V Stat Exams 02/16/20 05:44 Taken XR tibia fibula RT 2V Stat Exams 02/16/20 05:44 Taken - Radiology Data #1 Image(s): Knee, Tib/Fib Image Reviewed: Yes I reviewed the patient's radiology image Preliminary Findings: No Fracture Seen Fall HPI - General Chief Complaint: Fall Stated Complaint: AO 02/15/20 injury to right knee Time Seen by Provider: 02/16/20 05:50 Mode of Arrival: Family Vehicle Source of Information: Patient, Medical Record Limitations: Physical Limitations Description of Symptoms (Recalled from ER Triage Doc. by RN): pt describes slipping and falling in her house last night and landing directly on her right knee/tobar area. pt states she has had difficulty walking since. something was on the floor, i was wearing socks is her reason for the fall. able to get her self up. - History of Present Illness HPI Narrative: pt slipped and injured rt knee with swelling and dec wt bearing MD complaint: fall Onset (ago): hour(s) Fall from: standing Fall witnessed: no Place fall occurred: home Loss of consciousness: none Prolonged down time: no Context: tripped/slipped Location of injury - extremities: Right: knee Severity: moderate Associated symptoms (after fall): denies - Related Data Previous Rx's Medication Instructions Recorded aspirin 81 mg tablet,delayed 81 mg PO DAILY #30 tab 05/28/19 release furosemide 40 mg tablet 40 mg PO DIRECTED #60 tab 05/28/19 metoprolol tartrate 50 mg tablet 50 mg PO BID #60 tab 05/28/19 ranolazine 500 mg tablet,extended 500 mg PO BID #60 tab 05/28/19 release,12 hr spironolactone 50 mg tablet 50 mg PO DAILY #30 tab 05/28/19 isosorbide mononitrate 60 mg 60 mg PO DAILY #30 tab 06/17/19 tablet,extended release 24 hr lisinopril 40 mg tablet 40 mg PO DAILY #30 tab 02/10/20 rosuvastatin 20 mg tablet 20 mg PO DAILY #30 tab 02/11/20 Hydrocod/Acet 5/325 mg [[place] 1 tab PO Q6HP PRN #7 tab 02/16/20 5/325mg tablet] Meloxicam [Mobic 15 mg tab] 15 mg PO DAILY #10 tab 02/16/20 Allergies Allergy/AdvReac Type Severity Reaction Status Date / Time codeine Allergy Mild Verifi
[2020-02-16 06:47] VITALS: BP 163/75; PULSE 80; RESP 18; TEMP 36.7; O2SAT 98
== END 2020-02-16 06:50 | disposition home or self-care (01) ==
PROVIDERS: Emergency Provider Emergency Medicine
DX: S83.91XA Sprain of unspecified site of right knee, initial encounter (principal); W01.0XXA Fall on same level from slipping, tripping and stumbling without subsequent striking against object, initial encounter; Y92.019 Unspecified place in single-family (private) house as the place of occurrence of the external cause; I10 Essential (primary) hypertension; J44.9 Chronic obstructive pulmonary disease, unspecified; E78.5 Hyperlipidemia, unspecified; I25.10 Atherosclerotic heart disease of native coronary artery without angina pectoris; Z88.6 Allergy status to analgesic agent; F17.210 Nicotine dependence, cigarettes, uncomplicated
CPT/HCPCS: 29505; 73562; 73590; 99282; 99283

== ENCOUNTER 2020-02-19 07:36 | Day surgery (SDC) | payer MEDICAID, SELFPAY ==
[2020-02-19] VITALS (12 sets, daily range): BP systolic 119–155; BP diastolic 77–113; PULSE 64–90; RESP 16; TEMP 36.6; O2SAT 90–100; BMI 31.7
--- NOTE | 2020-02-19 | IR_ITS ---
APPROVED REPORT Patient Location: Outpatient Accountant Certified Public: JEROD Khan RT (R) PROCEDURES Left heart catheterization Left ventriculogram Selective coronary angiogram INDICATION Classic angina pectoris, Known coronary artery disease Informed consent was obtained prior to the procedure. COMPLICATIONS NONE Estimated Blood Loss: LESS THAN 10 ML TECHNIQUE One percent lidocaine used to anesthetize the right anterior aspect of the wrist. The right radial artery was accessed via the Seldinger technique. A 6 German sheath was placed in the right radial artery. 2.5 mg of verapamil, 800 mcg of nitroglycerin, 1mg Lidocaine and 5000 U Heparin were given through the arterial sheath. The trap catheter was also used to perform left heart catheterization, left ventriculogram and selective coronary angiogram. At the end of the procedure the sheath was removed good hemostasis was achieved using Traclet band, patient was transferred to the postop holding area in stable condition. ANGIOGRAPHIC RESULTS The left main artery has a distal mostly eccentric 50% stenosis The left anterior descending artery Has proximal 40 to 50% stenosis followed by a stent which is widely patent free of in-stent restenosis with excellent proximal distal transitioning. The distal LAD has 60% stenoses as the vessel tapers toward the apex. The circumflex artery Small nondominant The right coronary artery Is a large dominant vessel with proximal tandem 30% stenoses. A large posterior descending artery has an ostial 80% followed by mid vessel 80% and a distal 70% stenosis. Large posterior lateral branch has mid vessel 70 and 80% stenoses The [place] ventriculogram reveals Normal 65% The left ventricular end-diastolic pressure 10 mmHg IMPRESSION Severe three-vessel coronary disease as described above Normal ejection fraction Normal left ventricular end-diastolic pressure PLAN 1. Patient will be referred for surgical revascularization 2. LDL less than 55 3. Avoidance of tobacco products 4. Standard antianginal medications for ischemic cardiomyopathy Electronically signed by : Avni Mireles, 02/19/2020 10:19:59
[2020-02-19 08:42] LABS: Basophils # 0.1 K/mm3 (0-0.2); Basophils % 0.9 % (0.1-2.0); Eosinophils # 0.2 K/mm3 (0.0-0.4); Hematocrit 44.3 % (37.0-47.0); Hemoglobin 15.3 g/dL (12.2-16.2); Lymphocytes # 2.4 K/mm3 (0.7-4.5); Lymphocytes % 27.5 % (10-50); Mean Corpuscular HGB Conc 34.5 g/dL (31.8-35.4); Mean Corpuscular Hemoglobin 32.3 pg (27.0-31.2); Mean Corpuscular Volume 93.5 fl (81-99); Mean Platelet Volume 8.1 fl (7.4-10.4); Monocytes # 0.4 K/mm3 (0.1-1.0); Neutrophils # 5.7 K/mm3 (1.8-7.8); Neutrophils % 64.5 % (37.0-80.0); Platelet Count 298 K/mm3 (142-424); Red Blood Count 4.74 M/mm3 (4.20-5.40); Red Cell Distribution Width 13.7 % (11.5-17.5); White Blood Count 8.8 K/mm3 (4.8-10.8)
[2020-02-19 08:47] LABS: Chloride 95 mmol/L (98-107); Potassium 3.6 mmoL/L (3.5-5.1); Sodium 139 mmol/L (136-145)
[2020-02-19 08:50] LABS: Anion Gap 14.6 mEq/L (5-15); Blood Urea Nitrogen 9 mg/dl (7-17); Carbon Dioxide 33 mmol/L (22.0-30.0); Creatinine Clearance Estimated 126 mL/min (50-200); Estimated Glomerular Filt Rate 88 ml/min (>60); GFR (African American) 107 ML/MIN (>60); Glucose 129 mg/dl (74-100)
== END 2020-02-19 12:57 | disposition home or self-care (01) ==
LOC: CATHLAB 07:38
PROVIDERS: Visit Provider Internal Medicine
DX: I25.118 Atherosclerotic heart disease of native coronary artery with other forms of angina pectoris (principal); Z95.5 Presence of coronary angioplasty implant and graft; I25.5 Ischemic cardiomyopathy; I10 Essential (primary) hypertension; E78.5 Hyperlipidemia, unspecified; Z72.0 Tobacco use; Z79.899 Other long term (current) drug therapy; Z91.041 Radiographic dye allergy status; Z88.8 Allergy status to other drugs, medicaments and biological substances
CPT/HCPCS: 80048; 85025; 93458; 99152; C1725; C1769; J1644; J2405; Q9967

== ENCOUNTER → 2020-03-18 10:24 | Outpatient (CLI) | payer MEDICAID, SELFPAY ==
--- NOTE | 2020-03-18 10:29 | CA_ITS ---
APPROVED REPORT Electric Bath Attendant: Erika Kraft RVT Laterality: Bilateral Study Quality: Good Indications: Carotid stenosis Risk Factors Hypertension: Hyperlipidemia Smoking Doppler Spectral Velocity Analysis ECA (R) 52.50/10.60 cm/s ECA (L) 70.60/13.80 cm/s dICA (R) 69.20/30.00 cm/s dICA (L) 58.30/32.20 cm/s Kajal (R) 93.60/25.60 cm/s Kajal (L) 59.10/31.50 cm/s pICA (R) 138.00/59.90 cm/s pICA (L) 57.30/27.80 cm/s dCCA (R) 58.30/24.80 cm/s dCCA (L) 53.20/20.80 cm/s pCCA (R) 55.30/16.60 cm/s pCCA (L) 77.80/20.90 cm/s Vert (R) 41.00/15.30 cm/s Vert (L) 47.60/17.70 cm/s ICA/CCA 2.37 ICA/CCA 1.11 Findings Study suggests less than 20% stenosis of the right internal cartoid artery. Right internal cartoid artery is tourtous. Study suggests 20-49% stenosis of the left internal cartoid artery. Antegrade flow seen bilateral vertebral arteries. Conclusion Study suggests less than 20% stenosis of the right internal cartoid artery. Right internal cartoid artery is tourtous. Study suggests 20-49% stenosis of the left internal cartoid artery. Antegrade flow seen bilateral vertebral arteries. Electronically signed by : Markie Merino MD 03/18/2020 16:48:40
== END ==
PROVIDERS: PCP Nurse Practitioner Family; Visit Provider Thoracic Surgery (Cardiothoracic Vascular Surgery)
DX: I25.10 Atherosclerotic heart disease of native coronary artery without angina pectoris (principal)
CPT/HCPCS: 93880

== ENCOUNTER → 2020-03-22 11:54 | Outpatient (CLI) | payer MEDICAID, SELFPAY ==
[2020-03-23 16:13] LABS: Covid-19 Nasal PCR Sendout Lex NOT DETECTED
== END ==
PROVIDERS: Visit Provider Thoracic Surgery (Cardiothoracic Vascular Surgery)
DX: Z03.818 Encounter for observation for suspected exposure to other biological agents ruled out (principal); B34.9 Viral infection, unspecified
CPT/HCPCS: U0004

== ENCOUNTER 2020-05-18 09:04 | Outpatient (RCR) | payer OTHER, SELFPAY | END 2020-12-07 13:17 | disposition home or self-care (01) | LOC: PT 09:04 | PROVIDERS: Visit Provider Physician Assistant | DX: I25.10 Atherosclerotic heart disease of native coronary artery without angina pectoris (principal) | CPT/HCPCS: 93798 ==

== ENCOUNTER → 2020-05-20 15:07 | Outpatient (CLI) | payer OTHER, SELFPAY ==
[2020-05-20 15:29] LABS: Basophils # 0.1 K/mm3 (0-0.2); Basophils % 1.5 % (0.1-2.0); Eosinophils # 0.1 K/mm3 (0.0-0.4); Eosinophils % 2.1 % (0.1-12.0); Hematocrit 45.4 % (37.0-47.0); Hemoglobin 14.2 g/dL (12.2-16.2); Lymphocytes # 2.1 K/mm3 (0.7-4.5); Lymphocytes % 37.9 % (10-50); Mean Corpuscular HGB Conc 31.3 g/dL (31.8-35.4); Mean Corpuscular Hemoglobin 30.2 pg (27.0-31.2); Mean Corpuscular Volume 96.6 fl (81-99); Mean Platelet Volume 8.7 fl (7.4-10.4); Monocytes # 0.4 K/mm3 (0.1-1.0); Monocytes % 7.8 % (1.7-9.3); Neutrophils # 2.9 K/mm3 (1.8-7.8); Neutrophils % 50.6 % (37.0-80.0); Platelet Count 391 K/mm3 (142-424); Red Cell Distribution Width 14.3 % (11.5-17.5); White Blood Count 5.6 K/mm3 (4.8-10.8)
[2020-05-20 15:45] LABS: Alanine Aminotransferase 25 U/L (12-78); Albumin Level 4.5 g/dl (3.5-5.0); Albumin/Globulin Ratio 1.5 (1.1-1.8); Alkaline Phosphatase 98 U/L (38-126); Anion Gap 15.1 mEq/L (5-15); Aspartate Amino Transferase 32 U/L (14-36); Bilirubin,Total 0.5 mg/dl (0.2-1.3); Blood Urea Nitrogen 7 mg/dl (7-17); Carbon Dioxide 26 mmol/L (22.0-30.0); Chloride 103 mmol/L (98-107); Chol/HDL Ratio 3.8 (1-3.5); Cholesterol 253 mg/dl (140-200); Estimated Glomerular Filt Rate 105 ml/min (>60); GFR (African American) 128 ML/MIN (>60); Globulin 3.1 g/dL (1.3-3.2); Glucose 110 mg/dl (74-100); HDL Cholesterol 67 mg/dl (40-60); Potassium 4.1 mmoL/L (3.5-5.1); Sodium 140 mmol/L (136-145); Total Protein,Serum 7.6 g/dl (6.3-8.2); Triglycerides 212 mg/dl (30-150); VLDL Cholesterol 42 mg/dL (0-40)
[2020-05-20 15:57] LABS: Direct LDL Cholesterol 152.08 mg/dL (100-129); Hemoglobin A1C 5.6 % (4.0-6.0)
[2020-05-20 16:02] LABS: T4 (Thyroxine) 8.8 ug/dl (5.53-11.0)
[2020-05-20 16:03] LABS: 25-OH Vitamin D, Total 15.2 ng/mL (30-100)
[2020-05-20 16:16] LABS: Thyroid Stimulating Hormone 1.64 uIU/mL (0.465-4.68)
== END ==
PROVIDERS: Visit Provider Nurse Practitioner Family
DX: R73.09 Other abnormal glucose (principal); R53.83 Other fatigue; I10 Essential (primary) hypertension; E55.9 Vitamin D deficiency, unspecified
CPT/HCPCS: 80053; 80061; 82043; 82306; 83036; 84436; 84443; 85025

== ENCOUNTER → 2021-03-08 10:13 | Outpatient (CLI) | payer OTHER, SELFPAY ==
[2021-03-08 10:37] LABS: Basophils # 0.1 K/mm3 (0-0.2); Basophils % 1.8 % (0.1-2.0); Eosinophils # 0.2 K/mm3 (0.0-0.4); Eosinophils % 2.2 % (0.1-12.0); Hematocrit 43.4 % (37.0-47.0); Hemoglobin 14.1 g/dL (12.2-16.2); Lymphocytes # 2.5 K/mm3 (0.7-4.5); Mean Corpuscular HGB Conc 32.5 g/dL (31.8-35.4); Mean Corpuscular Hemoglobin 30.3 pg (27.0-31.2); Mean Corpuscular Volume 93.4 fl (81-99); Mean Platelet Volume 8.1 fl (7.4-10.4); Monocytes # 0.6 K/mm3 (0.1-1.0); Monocytes % 7.6 % (1.7-9.3); Neutrophils # 3.9 K/mm3 (1.8-7.8); Neutrophils % 53.4 % (37.0-80.0); Platelet Count 301 K/mm3 (142-424); Red Blood Count 4.65 M/mm3 (4.20-5.40); Red Cell Distribution Width 13.5 % (11.5-17.5); White Blood Count 7.3 K/mm3 (4.8-10.8)
[2021-03-08 11:13] LABS: Chloride 103 mmol/L (98-107); Potassium 4.6 mmoL/L (3.5-5.1); Sodium 140 mmol/L (136-145)
[2021-03-08 11:15] LABS: Blood Urea Nitrogen 6 mg/dl (7-17); Estimated Glomerular Filt Rate 88 ml/min (>60); GFR (African American) 106 ML/MIN (>60)
[2021-03-08 11:16] LABS: Alanine Aminotransferase 20 U/L (12-78); Albumin Level 4.2 g/dl (3.5-5.0); Alkaline Phosphatase 102 U/L (38-126); Anion Gap 11.6 mEq/L (5-15); Aspartate Amino Transferase 25 U/L (14-36); Bilirubin,Direct 0.4 mg/dl (0.0-0.4); Bilirubin,Total 0.4 mg/dl (0.2-1.3); Calcium 9.3 mg/dl (8.4-10.2); Carbon Dioxide 30 mmol/L (22.0-30.0); Chol/HDL Ratio 2.5 (1-3.5); Cholesterol 147 mg/dl (140-200); Glucose 85 mg/dl (74-100); HDL Cholesterol 60 mg/dl (40-60); Total Protein,Serum 6.9 g/dl (6.3-8.2); Triglycerides 133 mg/dl (30-150); VLDL Cholesterol 27 mg/dL (0-40)
[2021-03-08 11:28] LABS: Direct LDL Cholesterol 68.94 mg/dL (100-129)
[2021-03-08 11:33] LABS: Free T4 (Free Thyroxine) 1.05 ng/dl (0.78-2.19)
[2021-03-08 11:35] LABS: Hemoglobin A1C 6.2 % (4.0-6.0)
== END ==
PROVIDERS: Visit Provider Physician Assistant
DX: I25.118 Atherosclerotic heart disease of native coronary artery with other forms of angina pectoris (principal); R94.31 Abnormal electrocardiogram [ECG] [EKG]; E78.2 Mixed hyperlipidemia; I10 Essential (primary) hypertension; R29.898 Other symptoms and signs involving the musculoskeletal system; E11.9 Type 2 diabetes mellitus without complications; I63.9 Cerebral infarction, unspecified
CPT/HCPCS: 36415; 80048; 80061; 80076; 83036; 84439; 84443; 85025

== ENCOUNTER → 2021-03-22 07:28 | Outpatient (CLI) | payer OTHER, SELFPAY ==
--- NOTE | 2021-03-22 07:29 | CA_ITS ---
APPROVED REPORT Healthcare Management: Erika Kraft RVT Study Quality: Good Indications: HTN Risk Factors Hypertension Hyperlipidemia Obesity Smoking Renal Artery Doppler Origin (R) 138.8/ cm/sec Proximal (R) 133.7/ cm/sec Mid (R) 137.5/ cm/sec Distal (R) 114.4/ cm/sec Renal Aorta Ratio (R) 2.00 Segmental A. (R) 28.2/11.8 cm/sec RI: 0.58 Segmental A. Sup (R) 23.5/14.1 cm/sec Segmental A. Mid (R) 23.5/7.8 cm/sec Segmental A. Inf (R) 28.2/11.8 cm/sec Origin (L) 101.5/ cm/sec Proximal (L) 110.5/ cm/sec Mid (L) 161.9/ cm/sec Distal (L) 129.8/ cm/sec Renal Aorta Ratio (L) 2.33 Segmental A. (L) 35.9/12.3 cm/sec RI: 0.65 Segmental A. Sup (L) 23.6/13.0 cm/sec Segmental A. Mid (L) 35.9/12.3 cm/sec Segmental A. Inf (L) 31.4/12.3 cm/sec Renal Measurements Kidney Size (R) 9.8x7.0 cm Cortical Thickness (R) 1.1 cm Kidney Size (L) 10.6x7.0 cm Cortical Thickness (L) 1.5 cm Findings Study suggests no evidence of stenosis of the bilateral renal arteries. Conclusion Study suggests no evidence of stenosis of the bilateral renal arteries. Electronically signed by : Markie Merino MD 03/22/2021 16:43:17
== END ==
PROVIDERS: PCP Nurse Practitioner Family; Visit Provider Physician Assistant
DX: I10 Essential (primary) hypertension (principal)
CPT/HCPCS: 93976

== ENCOUNTER → 2021-06-06 12:11 | Outpatient (CLI) | payer OTHER, SELFPAY ==
--- NOTE | 2021-06-06 12:16 | CA_ITS ---
APPROVED REPORT EXAM: Comprehensive 2D, Doppler, and color-flow Echocardiogram Compressed Yeast Supervisor: Radha Stock, JUAN, RVS Ht: 5 ft 4 in Wt: 178lbs BSA: 1.86 BP: 122/64 mmHg Indications: CAD-h/o-CABG, Murmur, Smoker, HTN, HLD 2D Dimensions Left Atrium 3.98 cm LA Volume 36.10 mL LVOT 1.79 cm (M/F) 1.5-2.5 LA Volume Index 19.40 mL/m2 (M/F) 16-34 M-Mode Dimensions RVDd 2.77 cm (0.9-2.6) LA Diam 3.74 cm (1.9-4.0) LVDd 4.33 cm (3.5-5.7) Ao Diam 3.21 cm (2.0-3.7) LVDs 2.93 cm (3.5-5.7) IVSd 1.10 cm (0.6-1.1) PWd 0.91 cm (0.6-1.1) EF (Teich) 60.90% EPSs 0.84 cm FS 32.30% EDV (Teich) 84.40 mL TAPSE 1.57 (<1.7) ESV (Teich) 33.00 mL LV Diastology E Decel Time 283.00 (160-240 msec) E/A Ratio 2.04 MED E' 7.30 (< 7 cm/sec) MED A' 5.20 cm/s E'/MED E' Ratio 11.18 (>14) LAT E' 10.50 (<10 cm/sec) LAT A' 8.60 cm/s E/LAT E' Ratio 7.77 (>14) Aortic Valve LVOT Max 108.00 (70-110 cm/s) LVOT VTI 23.60 cm AoV Peak Mando. 142.00 (50-130 cm/s) AO Peak GR. 8.10 mmHg AO Mean GR. 4.10 (<5 mmHg) AO VTI 29.27 (18-25 cm) PRISCILLA (VTI) 2.03 (2.5-4.5 cm2) Mitral Valve MV A Velocity 40.00 (40-130 cm/s) E/A Ratio 2.04 MV Decel. Time 283.00 (160-240 ms) Pulmonary Valve AZ End VMAX 186.00 cm/s Tricuspid Valve TR P. Velocity 204.00 cm/s RAP Estimate 10.00 mmHg RVSP 26.60 mmHg Left Ventricle Left atrium is mildly enlarged, left ventricle is normal size, mild concentric left ventricular hypertrophy, visually estimated ejection fraction 55% with no regional wall motion abnormality, diastolic parameters are inconclusive in the study. Right Ventricle Right atrium and right ventricle are mildly enlarged with normal contractility. Aortic Valve Aortic valve is minimally thickened and fibrosed, there is no aortic stenosis or aortic insufficiency. Mitral Valve Mitral valve grossly normal, there is trace mitral regurgitation. Tricuspid Valve Tricuspid grossly normal, there is trace tricuspid regurgitation, tricuspid regurgitation jet velocity is inadequate for calculation of the right ventricular systolic pressure. Pulmonic Valve Pulmonic valve is poorly visualized. Great Vessels Aortic root is normal size. Inferior vena cava is normal size with normal inspiratory collapse. Pericardium No significant pericardial effusion noted. Conclusion 1. Mild biatrial enlargement, normal left ventricular size, mild concentric left ventricular hypertrophy, visually estimated ejection fraction 55% with no regional wall motion abnormality, diastolic parameters are inconclusive in the study. 2. Mildly enlarged right ventricle with normal contractility. 3. Trace mitral and tricuspid regurgitation. 4. No significant pericardial effusion noted 5. Inferior vena cava is normal size with normal inspiratory collapse. Electronically signed by : Adriano Obrien MD 06/07/2021 06:33:14
== END ==
PROVIDERS: PCP Emergency Medicine; Visit Provider Emergency Medicine
DX: R01.1 Cardiac murmur, unspecified (principal)
CPT/HCPCS: 93306

== ENCOUNTER 2021-08-20 10:16 | Emergency (ER) | payer OTHER, SELFPAY ==
[2021-08-20 10:56] VITALS: BP 142/95; PULSE 104; RESP 18; TEMP 36.8; O2SAT 99; BMI 30.9
--- NOTE | 2021-08-20 11:13 | HMH.EDUTC ---
[facility] [place] Disposition Clinical Impression: URI (upper respiratory infection) Qualifiers: URI type: unspecified viral URI Qualified Code(s): J06.9 - Acute upper respiratory infection, unspecified Disposition: Home, Self-Care Condition on Discharge: Good Instructions: DI for Viral Upper Respiratory Infection -- Adult Additional Instructions: covid swab was sent to lab, call tomorrow for results. self isolate until test results are known to be negative No sign of a bacterial infection. Likely viral. Viruses can take 7-14 days to run their course. Nasal saline and bulb syringe or nose Windy to remove nasal drainage to help with nasal congestion. Hard to eat, drink, sleep with nasal congestion so important to keep this cleaned out. Monitor temp. Tylenol or Motrin as needed for pain or fever Encourage fluids, water, Gatorade, Powerade, Pedialyte if infant/toddler/child Warm salt water gargles Warm fluids Sore throat lozenges Sleep elevated Humidifier/vaporizer Follow-up immediately for new or worsening symptoms or no noticeable improvement over the next 48-72 hours. Referrals: Venkat Fabian MD [Primary Care Provider] - Time of Disposition: 11:15 Medical Decision Making - Jesus Inquiry Pt receiving controlled substance: No Vital Signs: 08/20/21 10:56 Temperature 98.2 F Temperature Source Oral Pulse Rate [Left] 104 H Respiratory Rate 18 Blood Pressure [Right Arm] 142/95 H Blood Pressure Mean [Right Arm] 110 02 Sat by Pulse Oximetry 99 Orders (Tests/Meds): ORDERS Category Date Time Status Covid-19 Nasal PCR ([facility]) Routine Lab 08/20/21 10:59 Ordered [facility] [place] HPI - General Chief complaint: Urgent Treatment Center Stated complaint: body aches, h/a Time Seen by Provider: 08/20/21 11:13 Mode of Arrival: Ambulatory Source of Information: Patient Limitations: No Limitations Description of Symptoms (Recalled from Triage Doc. by RN): pt c/o a PETERSEN and body aches x2 days. HEENT Symptoms (Recalled from RN notes): Yes Resp Symptoms (Recalled from RN notes): No Skin Symptoms (Recalled from RN notes): No MS Symptoms (Recalled from RN notes): No Functional Status (Recalled from RN notes): wnl - History of Present Illness Provider Complaint: 50 yr old female c/o a PETERSEN and body aches x2 days - Related Data Home Medications Medication Instructions Recorded Confirmed rosuvastatin 20 mg tablet 20 mg PO DAILY tab 10/04/20 08/09/21 Previous Rx's Medication Instructions Recorded metoprolol tartrate 100 mg tablet 100 mg PO BID #60 tab 03/08/21 amlodipine 10 mg tablet 10 mg PO DAILY #30 tab 03/09/21 blood sugar diagnostic See Rx Instructions .ROUTE #100 03/11/21 each blood-glucose meter See Rx Instructions .ROUTE #1 each 03/11/21 lancets 30 gauge See Rx Instructions .ROUTE #100 03/11/21 each lisinopril 40 mg tablet 40 mg PO DAILY #90 tab 04/25/21 albuterol sulfate 90 mcg/actuation 2 puff INHALATION QID PRN #8.5 g 05/06/21 aerosol inhaler pantoprazole 40 mg tablet,delayed 40 mg PO DAILY #90 tab 06/17/21 release hydrochlorothiazide 12.5 mg tablet 12.5 mg PO DAILY #30 tab 07/18/21 aspirin 81 mg tablet,delayed See Rx Instructions .ROUTE 07/25/21 release .COMPLEX #100 tab nicotine 21 mg/24 hr daily 1 patch TRANSDERMA DAILY #28 each 08/15/21 transdermal patch fluticasone fur. 100 mcg-umeclid 1 inh INHALATION DAILY #60 each 08/19/21 62.5 mcg-vilant 25 mcg inhalat.powder Allergies Allergy/AdvReac Type Severity Reaction Status Date / Time codeine Allergy Mild Verified 08/09/21 10:21 Iodinated Contrast Media Allergy Mild Verified 08/09/21 10:21 [Iodinated Contrast Media - IV Dye] venom-honey bee Allergy Mild Verified 08/09/21 10:21 [bee venom (honey bee)] - Worker's Comp Is this a Worker's Comp case?: No H History - Hepatitis A Screen Drug use history?: No High risk sexual behaviors?: No History of sexually transmitted infection?: No Currently employed?: No C
[2021-08-20 11:16] LABS: UTC Influenza A Antigen Negative (Negative); UTC Influenza B Antigen Negative (Negative)
[2021-08-20 11:25] VITALS: BP 142/95; PULSE 104; RESP 18; TEMP 36.8
== END 2021-08-20 11:29 | disposition home or self-care (01) ==
PROVIDERS: Emergency Provider Nurse Practitioner Family; PCP Emergency Medicine
DX: U07.1 COVID-19 (principal); J06.9 Acute upper respiratory infection, unspecified; J44.9 Chronic obstructive pulmonary disease, unspecified; I25.10 Atherosclerotic heart disease of native coronary artery without angina pectoris; E11.9 Type 2 diabetes mellitus without complications; E78.5 Hyperlipidemia, unspecified; I10 Essential (primary) hypertension; F17.210 Nicotine dependence, cigarettes, uncomplicated; Z79.899 Other long term (current) drug therapy
CPT/HCPCS: 87804; 99202; C9803; G0463; U0003; U0005

== ENCOUNTER → 2021-09-13 07:32 | Outpatient (CLI) | payer OTHER, SELFPAY ==
--- NOTE | 2021-09-13 07:32 | US_ITS ---
FINAL REPORT CLINICAL HISTORY: abdominal pain FINDINGS: Sonographic images of the right upper quadrant were obtained. The pancreas is partially obscured. The liver has increased echogenicity consistent with fatty infiltration. The gallbladder appears normal without evidence of gallstones.There is no evidence of biliary ductal dilatation.The common duct measures 4mm. Limited images of the right kidney are unremarkable. IMPRESSION: Fatty infiltration of the liver. Reviewed, Interpreted and Dictated by Elio Lambert III, MD Transcribed by Radha Herbert Authenticated by Elio Lmabert III, MD on 09/13/2021 10:23:38 AM [facility]
== END ==
PROVIDERS: PCP Emergency Medicine; Visit Provider Emergency Medicine
DX: R10.9 Unspecified abdominal pain (principal)
CPT/HCPCS: 76705

== ENCOUNTER → 2021-09-16 13:19 | Outpatient (CLI) | payer OTHER, SELFPAY | PROVIDERS: PCP Emergency Medicine; Visit Provider Emergency Medicine | DX: R20.2 Paresthesia of skin (principal) ==

== ENCOUNTER → 2022-01-25 08:42 | Outpatient (CLI) | payer OTHER, SELFPAY ==
[2022-01-25 09:15] LABS: Chloride 104 mmol/L (98-107); Sodium 137 mmol/L (136-145)
[2022-01-25 09:16] LABS: Potassium 4.8 mmoL/L (3.5-5.1)
[2022-01-25 09:19] LABS: Anion Gap 7.8 mEq/L (5-15); Blood Urea Nitrogen 9 mg/dl (7-17); Calcium 9.2 mg/dl (8.4-10.2); Carbon Dioxide 30 mmol/L (22.0-30.0); Estimated Glomerular Filt Rate 75 ml/min (>60); GFR (African American) 91 ML/MIN (>60); Glucose 128 mg/dl (74-100)
== END ==
PROVIDERS: PCP Emergency Medicine; Visit Provider Nurse Practitioner Family
DX: Z01.812 Encounter for preprocedural laboratory examination (principal); Z20.822 Contact with and (suspected) exposure to COVID-19; R06.09 Other forms of dyspnea; I25.118 Atherosclerotic heart disease of native coronary artery with other forms of angina pectoris; I20.8 Other forms of angina pectoris; I10 Essential (primary) hypertension; E78.2 Mixed hyperlipidemia; Z95.1 Presence of aortocoronary bypass graft
CPT/HCPCS: 36415; 80048; C9803; U0003; U0005

== ENCOUNTER 2022-01-27 07:33 | Day surgery (SDC) | payer OTHER, SELFPAY ==
[2022-01-27] VITALS (19 sets, daily range): BP systolic 114–165; BP diastolic 67–105; PULSE 67–103; RESP 18; O2SAT 92–98; BMI 31.0
--- NOTE | 2022-01-27 | IR_ITS ---
APPROVED REPORT Patient Location: Outpatient PROCEDURES Left heart catheterization Left ventriculogram Selective coronary angiogram Selective engagement left internal mammary artery the LAD Selective engagement of the saphenous vein graft to the ramus intermedius Selective engagement saphenous vein graft to the right coronary INDICATION Coronary artery disease, History of coronary bypass surgery, Accelerated angina pectoris Informed consent was obtained prior to the procedure. COMPLICATIONS None Estimated Blood Loss: Less than 10 mls TECHNIQUE One percent lidocaine used to anesthetize the right groin. The right femoral artery was accessed via the Seldinger technique and a 5 Kazakh sheath was placed in the right femoral artery. A JL 4, JR4 catheter were used to perform left heart catheterization, left ventriculogram selective coronary angiography as well as selective engagement of the 2 vein grafts and the left internal mammary artery. At the end of the procedure the patient was transferred to the postop holding area in stable condition for sheath removal. ANGIOGRAPHIC RESULTS The left main artery Has a distal concentric 70 to 80% stenosis The left anterior descending artery Is patent proximally and has evidence of competitive flow from the KATZ graft The circumflex artery Is a nondominant system is small but patent The right coronary artery Large dominant and has a mid vessel smooth 30% stenosis with a distal 30% stenosis with competitive flow from a widely patent saphenous vein graft The AUGUSTIN ventriculogram reveals Preserved 55% The left ventricular end-diastolic pressure 15 mmHg KATZ to LAD patent Saphenous to diagonal artery patent Saphenous to large dominant right coronary artery/posterior descending arteries widely patent IMPRESSION Stable coronary artery disease as described above Likely endothelial dysfunction with microvascular ischemia Preserved ejection fraction PLAN 1. Medical management Electronically signed by : Avni Mireles MD 01/27/2022 10:18:29
--- NOTE | 2022-01-27 07:42 | CA_ITS ---
APPROVED REPORT EXAM: Comprehensive 2D, Doppler, and color-flow Echocardiogram Entry Operator: Erika Kraft RVT Ht: 5 ft 4 in Wt: 181lbs BSA: 1.88 BP: 159/99 mmHg Indications: ANGINA,CAD,CABG,SMOKER,DM,COPD,HTN,HLD,DM 2D Dimensions LVOT 1.97 cm (M/F) 1.5-2.5 LA Volume 15.20 mL LA Volume Index 8.12 mL/m2 (M/F) 16-34 M-Mode Dimensions RVDd 1.72 cm (0.9-2.6) LA Diam 3.41 cm (1.9-4.0) LVDd 4.44 cm (3.5-5.7) Ao Diam 3.19 cm (2.0-3.7) LVDs 2.93 cm (3.5-5.7) IVSd 0.93 cm (0.6-1.1) PWd 0.61 cm (0.6-1.1) EF (Teich) 63.20% FS 34.00% EDV (Teich) 89.60 mL ESV (Teich) 33.00 mL LV Diastology E Decel Time 153.00 (160-240 msec) E/A Ratio 1.3 MED E' 6.20 (< 7 cm/sec) E'/MED E' Ratio 11.84 (>14) LAT E' 12.10 (<10 cm/sec) E/LAT E' Ratio 6.07 (>14) Aortic Valve AO Peak GR. 4.40 mmHg Mitral Valve MV E Max Mando. 73.00 (40-130 cm/s) MV A Velocity 58.00 (40-130 cm/s) E/A Ratio 1.26 MV Decel. Time 153.00 (160-240 ms) MV PHT 45.00 ms Pulmonary Valve PV Peak Velocity 77.00 (50-150 cm/s) Left Ventricle Left atrium is mildly enlarged, left ventricle is normal size mild concentric left ventricular hypertrophy, estimated ejection fraction 55% with no regional wall motion abnormality, diastolic parameters are inconclusive. Right Ventricle Right atrium and right ventricle are normal size and contractility. Aortic Valve Aortic valve is grossly normal, there is no aortic stenosis or aortic insufficiency. Mitral Valve Mitral valve is grossly normal, there is trace mitral regurgitation. Tricuspid Valve Tricuspid valve grossly normal, there is trace tricuspid regurgitation, tricuspid regurgitation jet velocity is inadequate for calculation of the right ventricular systolic pressure. Pulmonic Valve Pulmonic valve is poorly visualized. Great Vessels Aortic root is normal size. Inferior vena cava normal size with normal inspiratory collapse. Pericardium No significant pericardial effusion noted. Conclusion 1. Mildly enlarged left atrium, normal left ventricular size mild concentric left ventricular hypertrophy, estimated ejection fraction 55% with no regional wall motion abnormality, diastolic parameters are inconclusive. 2. Trace mitral and tricuspid regurgitation. 3. No significant pericardial effusion. 4. Inferior vena cava is normal size with normal inspiratory collapse. Electronically signed by : Adriano Obrien MD 01/27/2022 10:17:23
[2022-01-27 08:30] LABS: Basophils # 0.1 K/mm3 (0-0.2); Basophils % 1.5 % (0.1-2.0); Eosinophils # 0.2 K/mm3 (0.0-0.4); Eosinophils % 2.9 % (0.1-12.0); Hematocrit 39.6 % (37.0-47.0); Hemoglobin 13.6 g/dL (12.2-16.2); Lymphocytes # 2.2 K/mm3 (0.7-4.5); Lymphocytes % 31.2 % (10-50); Mean Corpuscular HGB Conc 34.4 g/dL (31.8-35.4); Mean Corpuscular Volume 90.3 fl (81-99); Mean Platelet Volume 7.4 fl (7.4-10.4); Monocytes # 0.4 K/mm3 (0.1-1.0); Monocytes % 6.1 % (1.7-9.3); Neutrophils # 4.1 K/mm3 (1.8-7.8); Neutrophils % 58.3 % (37.0-80.0); Platelet Count 290 K/mm3 (142-424); Red Blood Count 4.39 M/mm3 (4.20-5.40); Red Cell Distribution Width 13.3 % (11.5-17.5); White Blood Count 7.1 K/mm3 (4.8-10.8)
== END 2022-01-27 13:41 | disposition home or self-care (01) ==
LOC: CATHLAB 07:34
PROVIDERS: PCP Emergency Medicine; Visit Provider Internal Medicine
DX: I25.118 Atherosclerotic heart disease of native coronary artery with other forms of angina pectoris (principal); I10 Essential (primary) hypertension; E66.9 Obesity, unspecified; J44.9 Chronic obstructive pulmonary disease, unspecified; Z95.1 Presence of aortocoronary bypass graft; F17.210 Nicotine dependence, cigarettes, uncomplicated; Z88.8 Allergy status to other drugs, medicaments and biological substances
CPT/HCPCS: 85025; 93306; 93459; 99152; C1725; C1769; C1894; J1644; Q9967

== ENCOUNTER → 2022-05-17 17:21 | Outpatient (CLI) | payer OTHER, SELFPAY ==
[2022-05-17 15:16] LABS: Basophils # 0.1 K/mm3 (0-0.2); Basophils % 1.7 % (0.1-2.0); Eosinophils # 0.2 K/mm3 (0.0-0.4); Eosinophils % 2.4 % (0.1-12.0); Hematocrit 45.4 % (37.0-47.0); Hemoglobin 14.7 g/dL (12.2-16.2); Lymphocytes # 2.1 K/mm3 (0.7-4.5); Lymphocytes % 28.9 % (10-50); Mean Corpuscular HGB Conc 32.5 g/dL (31.8-35.4); Mean Corpuscular Hemoglobin 30.9 pg (27.0-31.2); Mean Corpuscular Volume 95.2 fl (81-99); Mean Platelet Volume 8.9 fl (7.4-10.4); Monocytes # 0.5 K/mm3 (0.1-1.0); Monocytes % 7.3 % (1.7-9.3); Neutrophils # 4.3 K/mm3 (1.8-7.8); Neutrophils % 59.6 % (37.0-80.0); Platelet Count 348 K/mm3 (142-424); Red Blood Count 4.77 M/mm3 (4.20-5.40); Red Cell Distribution Width 13.1 % (11.5-17.5); White Blood Count 7.2 K/mm3 (4.8-10.8)
[2022-05-17 15:20] LABS: Alanine Aminotransferase 31 U/L (12-78); Albumin/Globulin Ratio 1.4 (1.1-1.8); Alkaline Phosphatase 128 U/L (38-126); Anion Gap 15.4 mEq/L (5-15); Aspartate Amino Transferase 36 U/L (14-36); Bilirubin,Total 0.5 mg/dl (0.2-1.3); Blood Urea Nitrogen 9 mg/dl (7-17); Calcium 9.1 mg/dl (8.4-10.2); Carbon Dioxide 29 mmol/L (22.0-30.0); Chloride 100 mmol/L (98-107); Chol/HDL Ratio 3.8 (1-3.5); Cholesterol 194 mg/dl (140-200); Estimated Glomerular Filt Rate 75 ml/min (>60); GFR (African American) 91 ML/MIN (>60); Globulin 2.8 g/dL (1.3-3.2); Glucose 92 mg/dl (74-100); HDL Cholesterol 51 mg/dl (40-60); Potassium 4.4 mmoL/L (3.5-5.1); Sodium 140 mmol/L (136-145); Total Protein,Serum 6.8 g/dl (6.3-8.2); Triglycerides 148 mg/dl (30-150); VLDL Cholesterol 30 mg/dL (0-40)
[2022-05-17 15:30] LABS: Direct LDL Cholesterol 118.81 mg/dL (100-129)
[2022-05-17 15:35] LABS: Free T4 (Free Thyroxine) 0.99 ng/dl (0.78-2.19)
[2022-05-17 15:50] LABS: Thyroid Stimulating Hormone 1.58 uIU/mL (0.465-4.68)
[2022-05-17 15:52] LABS: 25-OH Vitamin D, Total < 12.8 ng/mL (30-100)
== END ==
PROVIDERS: PCP Emergency Medicine; Visit Provider Emergency Medicine
DX: E66.9 Obesity, unspecified (principal); E55.9 Vitamin D deficiency, unspecified; Z68.30 Body mass index [BMI] 30.0-30.9, adult; Z79.899 Other long term (current) drug therapy
CPT/HCPCS: 80053; 80061; 82306; 83036; 84439; 84443; 85025

== ENCOUNTER → 2022-05-18 14:17 | Outpatient (CLI) | payer OTHER, SELFPAY ==
[2022-05-18 14:19] LABS: Microscopic, Urine URINE MICROSCOPIC (MICROSCOPIC)
[2022-05-18 15:05] LABS: Appearance,Urine CLEAR (Clear); Bilirubin,Urine Negative (Negative); Blood, Urine Negative (Negative); Color,Urine YELLOW (Yellow); Glucose,Urine (UA) Negative (Negative); Ketones,Urine Negative (Negative); Leukocyte Esterase,Urine Negative (Negative); Nitrate,Urine Negative (Negative); PH,Urine 7.5 (5.0-8.5); Protein,Urine Negative (Negative); Specific Gravity, Urine 1.015 (1.005-1.030); Urobilinogen,Urine 0.2 EU/dl (0.2)
[2022-05-18 15:25] LABS: Bacteria,Urine Trace /lpf; WBC,Urine Occasional #/hpf (0-3)
[2022-05-18 15:34] LABS: Creatinine,Urine Random 87 mg/dL (Not Estab.); Microalbumin < 6.000 mg/L (0-16.7)
== END ==
PROVIDERS: PCP Emergency Medicine; Visit Provider Emergency Medicine
DX: R35.0 Frequency of micturition (principal)
CPT/HCPCS: 81001; 82043; 82570; 87086

== ENCOUNTER → 2022-06-08 12:33 | Outpatient (CLI) | payer OTHER, SELFPAY ==
--- NOTE | 2022-06-08 12:34 | CA_ITS ---
FINAL REPORT CLINICAL HISTORY: DIZZINESS,HTN,HLD,SMOKING FINDINGS: An ultrasound of the carotid arteries was performed. Duplex Doppler evaluation with spectral analysis was performed. The peak systolic velocity of the right common carotid artery is 64 cm/s. The peak systolic velocity of the right internal carotid artery is 109 cm/s and end diastolic velocity 44 cm/s. A small amount of plaque is present. The right external carotid artery is patent. The right vertebral artery is patent with antegrade flow. ICA/CCA ratio: 1.7 The peak systolic velocity of the left common carotid artery is 65 cm/s. The peak systolic velocity of the left internal carotid artery is 76 cm/s and end diastolic velocity 31 cm/s. A small amount of plaque is present. The left external carotid artery is patent. The left vertebral artery is patent with antegrade flow. ICA/CCA ratio: 1.5 Bilateral patent vertebral arteries with antegrade flow. IMPRESSION: Less than 50% bilateral carotid stenosis based on velocities. Reviewed, Interpreted and Dictated by Finn Diaz MD Transcribed by Ramesh Shaffer Authenticated and [facility]
== END ==
PROVIDERS: PCP Emergency Medicine; Visit Provider Emergency Medicine
DX: R42 Dizziness and giddiness (principal); R29.6 Repeated falls
CPT/HCPCS: 93880

== ENCOUNTER → 2022-08-16 10:26 | Outpatient (CLI) | payer OTHER, SELFPAY ==
[2022-08-16 11:26] LABS: Basophils # 0.1 K/mm3 (0-0.2); Basophils % 1.8 % (0.1-2.0); Eosinophils # 0.1 K/mm3 (0.0-0.4); Eosinophils % 1.8 % (0.1-12.0); Hemoglobin 14.4 g/dL (12.2-16.2); Lymphocytes # 2.5 K/mm3 (0.7-4.5); Lymphocytes % 30.6 % (10-50); Mean Corpuscular HGB Conc 32.6 g/dL (31.8-35.4); Mean Corpuscular Hemoglobin 31.1 pg (27.0-31.2); Mean Corpuscular Volume 95.5 fl (81-99); Mean Platelet Volume 8.3 fl (7.4-10.4); Monocytes # 0.5 K/mm3 (0.1-1.0); Monocytes % 6.4 % (1.7-9.3); Neutrophils # 4.8 K/mm3 (1.8-7.8); Neutrophils % 59.4 % (37.0-80.0); Platelet Count 328 K/mm3 (142-424); Red Blood Count 4.61 M/mm3 (4.20-5.40); Red Cell Distribution Width 13.6 % (11.5-17.5); White Blood Count 8.1 K/mm3 (4.8-10.8)
[2022-08-16 11:48] LABS: Alanine Aminotransferase 22 U/L (12-78); Albumin Level 4.2 g/dl (3.5-5.0); Alkaline Phosphatase 98 U/L (38-126); Anion Gap 11.3 mEq/L (5-15); Aspartate Amino Transferase 28 U/L (14-36); Bilirubin,Direct 0.2 mg/dl (0.0-0.4); Bilirubin,Indirect 0.3 mg/dL (0.0-0.9); Bilirubin,Total 0.5 mg/dl (0.2-1.3); Bilirubin,Unconjugated 0.3 mg/dL (0.0-1.1); Blood Urea Nitrogen 10 mg/dl (7-17); Calcium 9.1 mg/dl (8.4-10.2); Carbon Dioxide 28 mmol/L (22.0-30.0); Chloride 105 mmol/L (98-107); Chol/HDL Ratio 4.6 (1-3.5); Cholesterol 251 mg/dl (140-200); Estimated Glomerular Filt Rate 75 ml/min (>60); GFR (African American) 91 ML/MIN (>60); Glucose 86 mg/dl (74-100); HDL Cholesterol 54 mg/dl (40-60); Potassium 4.3 mmoL/L (3.5-5.1); Sodium 140 mmol/L (136-145); Total Protein,Serum 7.1 g/dl (6.3-8.2); Triglycerides 185 mg/dl (30-150); VLDL Cholesterol 37 mg/dL (0-40)
[2022-08-16 11:59] LABS: Direct LDL Cholesterol 162.41 mg/dL (100-129)
[2022-08-16 12:05] LABS: Free T4 (Free Thyroxine) 1.08 ng/dl (0.78-2.19)
[2022-08-16 12:19] LABS: Thyroid Stimulating Hormone 1.48 uIU/mL (0.465-4.68)
== END ==
PROVIDERS: PCP Emergency Medicine; Visit Provider Nurse Practitioner
DX: R06.00 Dyspnea, unspecified (principal); I25.118 Atherosclerotic heart disease of native coronary artery with other forms of angina pectoris; I11.9 Hypertensive heart disease without heart failure; E11.9 Type 2 diabetes mellitus without complications; E78.2 Mixed hyperlipidemia; R94.31 Abnormal electrocardiogram [ECG] [EKG]; I63.9 Cerebral infarction, unspecified; Z95.1 Presence of aortocoronary bypass graft
CPT/HCPCS: 36415; 80048; 80061; 80076; 84439; 84443; 85025

== ENCOUNTER 2022-09-01 03:16 | Emergency (ER) | payer OTHER, SELFPAY ==
--- NOTE | 2022-09-01 03:01 | ECG_ITS ---
APPROVED REPORT Exam: Resting ECG HR:102 bpm ECG Measurements Heart Rate 102 AXES NJ 173 P 65 QRSd 93 QRS 70 QT 371 T 79 QTc 430 Conclusion SINUS TACHYCARDIA LOW QRS VOLTAGE IN PRECORDIAL LEADS [QRS DEFLECTION < 1.0 mV IN CHEST LEADS] POSSIBLE RIGHT VENTRICULAR CONDUCTION DELAY [RSR (QR) IN V1/V2] ABNORMAL RHYTHM ECG UNCONFIRMED REPORT Electronically signed by : Ephraim Obregon MD 09/01/2022 20:54:26
[2022-09-01 03:16] VITALS: BP 137/92; PULSE 101; RESP 15; TEMP 36.6; O2SAT 98; BMI 28.3
[2022-09-01 03:17] VITALS: BMI 28.3
--- NOTE | 2022-09-01 03:18 | CT_ITS ---
PROCEDURE INFORMATION: Exam: CT Head Without Contrast Exam date and time: 09/01/2022 3:37 AM Age: 51 years old Clinical indication: Injury or trauma; Fall; Additional info: Fall, poss loc, posterior tender lump TECHNIQUE: Imaging protocol: Computed tomography of the head without contrast. Radiation optimization: All CT scans at this facility use at least one of these dose optimization techniques: automated exposure control; mA and/or kV adjustment per patient size (includes targeted exams where dose is matched to clinical indication); or iterative reconstruction. Other protocol: This patient has received [address] and 0 known cardiac nuclear medicine studies in the 12 months prior to the current study. COMPARISON: US CA CAROTID DUPLEX BI 06/08/2022 12:36 PM FINDINGS: Brain: There is no area of intraparenchymal or extra-axial hemorrhage present. There is no focal mass. There is no midline shift. The olivares-white matter junction is intact. Cerebral ventricles: No ventriculomegaly. Paranasal sinuses: Visualized sinuses are unremarkable. No fluid levels. Mastoid air cells: Visualized mastoid air cells are well aerated. Bones/joints: Unremarkable. No acute fracture. Soft tissues: Left parietal scalp soft tissue swelling. IMPRESSION: 1. Left parietal scalp soft tissue swelling. 2. Otherwise unremarkable examination of the brain. There is no acute intracranial abnormality seen.
--- NOTE | 2022-09-01 03:18 | CT_ITS ---
PROCEDURE INFORMATION: Exam: CT Cervical Spine Without Contrast Exam date and time: 09/01/2022 3:37 AM Age: 51 years old Clinical indication: Injury or trauma; Fall; Additional info: Fall, poss loc, neck pain TECHNIQUE: Imaging protocol: Computed tomography of the cervical spine without contrast. Radiation optimization: All CT scans at this facility use at least one of these dose optimization techniques: automated exposure control; mA and/or kV adjustment per patient size (includes targeted exams where dose is matched to clinical indication); or iterative reconstruction. Other protocol: This patient has received [address] and 0 known cardiac nuclear medicine studies in the 12 months prior to the current study. COMPARISON: US CA CAROTID DUPLEX BI 06/08/2022 12:36 PM FINDINGS: Bones/joints: No acute fracture. Normal alignment. No significant disc protrusion. No severe spinal canal stenosis. Lungs: Lung apices are normal. Soft tissues: Unremarkable. IMPRESSION: No evidence for significant traumatic injury of the cervical spine.
--- NOTE | 2022-09-01 03:18 | XR_ITS ---
PROCEDURE INFORMATION: Exam: XR Pelvis Exam date and time: 09/01/2022 3:33 AM Age: 51 years old Clinical indication: Injury or trauma; Fall; Blunt trauma (contusions or hematomas); Does not apply; Pelvic region TECHNIQUE: Imaging protocol: Radiologic exam of the pelvis. Views: 1 or 2 view. COMPARISON: US CA RENAL ARTERY DUPLEX 03/22/2021 7:52 AM FINDINGS: Bones/joints: No acute fracture, dislocation or osseous destructive process. Soft tissues: No acute findings or radiopaque foreign body. IMPRESSION: No acute findings.
--- NOTE | 2022-09-01 03:18 | XR_ITS ---
PROCEDURE INFORMATION: Exam: XR Chest Exam date and time: 09/01/2022 3:34 AM Age: 51 years old Clinical indication: Injury or trauma; Fall; Blunt trauma (contusions or hematomas) TECHNIQUE: Imaging protocol: Radiologic exam of the chest. Views: 1 view. COMPARISON: CR CXR2V XR chest 2V 07/18/2018 10:38 AM FINDINGS: Lungs: Limited depth of inspiration. Prominence of the central pulmonary markings on the left. Pleural spaces: No pleural effusion. No pneumothorax. Heart/Mediastinum: No acute findings or cardiomegaly. Bones/joints: Status post sternotomy. IMPRESSION: Prominence of the central pulmonary markings on the left which may be related to bronchial wall thickening/airspace disease or pulmonary congestion.
[2022-09-01 03:36] LABS: Basophils # 0.2 K/mm3 (0-0.2); Basophils % 1.7 % (0.1-2.0); Coronavirus 19, PCR Not Detected (NotDetected); Eosinophils # 0.2 K/mm3 (0.0-0.4); Eosinophils % 1.7 % (0.1-12.0); Hemoglobin 13.8 g/dL (12.2-16.2); Influenza A, PCR Not Detected (NotDetected); Influenza B, PCR Not Detected (NotDetected); Lymphocytes # 2.7 K/mm3 (0.7-4.5); Lymphocytes % 25.9 % (10-50); Mean Corpuscular HGB Conc 32.1 g/dL (31.8-35.4); Mean Corpuscular Hemoglobin 30.5 pg (27.0-31.2); Mean Platelet Volume 8.4 fl (7.4-10.4); Monocytes # 0.7 K/mm3 (0.1-1.0); Monocytes % 6.6 % (1.7-9.3); Neutrophils # 6.8 K/mm3 (1.8-7.8); Neutrophils % 64.1 % (37.0-80.0); Platelet Count 341 K/mm3 (142-424); Red Blood Count 4.52 M/mm3 (4.20-5.40); Red Cell Distribution Width 13.8 % (11.5-17.5); White Blood Count 10.6 K/mm3 (4.8-10.8)
[2022-09-01 03:37] LABS: Alanine Aminotransferase 34 U/L (12-78); Albumin Level 4.2 g/dl (3.5-5.0); Albumin/Globulin Ratio 1.4 (1.1-1.8); Alkaline Phosphatase 92 U/L (38-126); Anion Gap 10.9 mEq/L (5-15); Aspartate Amino Transferase 40 U/L (14-36); Bilirubin,Total 0.6 mg/dl (0.2-1.3); Blood Urea Nitrogen 12 mg/dl (7-17); Calcium 8.9 mg/dl (8.4-10.2); Carbon Dioxide 24 mmol/L (22.0-30.0); Chloride 106 mmol/L (98-107); Creatinine Clearance Estimated 85 mL/min (50-200); Estimated Glomerular Filt Rate 65 ml/min (>60); GFR (African American) 79 ML/MIN (>60); Globulin 2.9 g/dL (1.3-3.2); Glucose 137 mg/dl (74-100); Magnesium 1.8 mg/dl (1.6-2.3); Potassium 3.9 mmoL/L (3.5-5.1); Sodium 137 mmol/L (136-145); Total Protein,Serum 7.1 g/dl (6.3-8.2)
[2022-09-01 03:41] LABS: C-Reactive Protein 5.6 mg/L (0-4)
[2022-09-01 03:45] VITALS: BP 115/85; BP 127/90; BP 98/73
[2022-09-01 03:54] LABS: Procalcitonin 0.064 ng/mL (0.0-2.0)
[2022-09-01 04:16] LABS: Troponin I < 0.01 ng/ml (0.00-0.034)
[2022-09-01 04:33] LABS: Erythrocyte Sedimentation Rate 35 mm/hr (0-30)
--- NOTE | 2022-09-01 04:37 | HMH.EDFALL ---
Discharge Plan Disposition Patient Disposition: Home, Self-Care Chief Complaint: Fall Prescriptions Prescriptions: No Action ipratropium-albuterol 0.5 mg-3 mg(2.5 mg base)/3 mL solution for nebulization 3 ml IH Q4-6H PRN (Reason: shortness of breath or wheezing) Qty: 180 2RF isosorbide mononitrate 30 mg tablet extended release 24 hr 30 mg PO DAILY albuterol sulfate [Proventil HFA] 90 mcg/actuation HFA aerosol inhaler 2 puff IH QID PRN (Reason: shortness of breath or wheezing) Qty: 8.5 1RF lisinopril 40 mg tablet 40 mg PO DAILY Qty: 90 3RF (DME) blood-glucose meter Misc See Rx Instructions .Route DAILY Qty: 1 0RF Rx Instructions: Check sugar once daily or as directed metoprolol tartrate 100 MG tablet 100 mg PO BID clonazepam 0.5 MG tablet 0.5 mg PO BID (DME) blood sugar diagnostic 1 EACH strip See Rx Instructions .Route DAILY Rx Instructions: Test sugar once daily or as directed aspirin 81 MG tablet,delayed release (DR/EC) 81 mg PO DAILY Rx Instructions: Take 1 tablet by mouth once daily amlodipine 10 MG tablet 10 mg PO DAILY (DME) lancets 1 EACH misc See Rx Instructions .Route HS Rx Instructions: As directed trazodone 50 mg tablet 50 mg PO HS pantoprazole 40 mg tablet,delayed release (DR/EC) 40 mg PO DAILY Rx Instructions: Take 1 tablet by mouth once daily rosuvastatin [Crestor] 40 mg tablet 40 mg PO DAILY ranolazine 500 mg tablet extended release 12 hr 500 mg PO BID cholecalciferol (vitamin D3) 1,250 mcg (50,000 unit) capsule 1,250 mcg PO WEEKLY cholecalciferol (vitamin D3) 50 mcg (2,000 unit) capsule 50 mcg PO DAILY Trelegy Ellipta 100-62.5-25 mcg blister with device 1 inh inhalation DAILY Referrals Follow up/Referrals: Venkat Fabian MD [Primary Care Provider] - See instructions Clinical Impressions Clinical Impression: Syncope, Concussion without loss of consciousness, Contusion of head Instructions Patient Instructions: DI for Concussion Discharge ED Provider: Rui (ED)Venkat HPI General Chief Complaint: Fall Stated Complaint: Fall Time Seen by Provider: 09/01/22 04:37 Mode of Arrival: EMS Source of Information: Patient, Significant Other, EMS and Medical Record Limitations: No Limitations Description of Symptoms (Recalled from ER Triage Doc. by RN): Pt arrives via ems for fall. Patient states that she went to the restroom this morning and when she was walking back to her bedroom she fell and hit the back of her head. States that she is unsure if she lost consciousness. Patient does have a knot on the back of her head. No blood noted. C/o head and neck pain. History of Present Illness HPI Narrative: pt with crampy abd pain and went to bathroom and had episode of passing out and had shaking to legs and hit head -possible loc - has headache MD complaint: fall Onset (ago): hour(s) Fall from: standing Fall witnessed: no Place fall occurred: home Loss of consciousness: none Prolonged down time: no Symptoms prior to fall: none Location of injury: head and neck Severity: moderate Associated symptoms (after fall): headache and neck pain Related Data Home Medications Medication Instructions Recorded Confirmed amlodipine 10 mg tablet 10 mg PO DAILY htn 01/27/22 09/01/22 aspirin 81 mg tablet,delayed 81 mg PO DAILY heart health 01/27/22 09/01/22 release blood sugar diagnostic 01/27/22 08/16/22 clonazepam 0.5 mg tablet 0.5 mg PO BID Anxiety 01/27/22 09/01/22 lancets 30 gauge 01/27/22 08/16/22 metoprolol tartrate 100 mg tablet 100 mg PO BID htn 01/27/22 09/01/22 isosorbide mononitrate 30 mg 30 mg PO DAILY htn 02/09/22 09/01/22 tablet,extended release 24 hr cholecalciferol (vitamin D3) 1,250 1,250 mcg PO WEEKLY Supplement 09/01/22 09/01/22 mcg (50,000 unit) capsule cholecalciferol (vitamin D3) 50 50 mcg PO DAILY Supplement
[2022-09-01 05:05] VITALS: BP 114/64; PULSE 83; RESP 18; TEMP 36.7; O2SAT 97
== END 2022-09-01 05:23 | disposition home or self-care (01) ==
PROVIDERS: Emergency Provider Emergency Medicine; PCP Emergency Medicine
DX: S06.0X0A Concussion without loss of consciousness, initial encounter (principal); S00.83XA Contusion of other part of head, initial encounter; R55 Syncope and collapse; W19.XXXA Unspecified fall, initial encounter; R53.1 Weakness; I25.10 Atherosclerotic heart disease of native coronary artery without angina pectoris; E78.5 Hyperlipidemia, unspecified; I10 Essential (primary) hypertension; F17.210 Nicotine dependence, cigarettes, uncomplicated; Z95.1 Presence of aortocoronary bypass graft
CPT/HCPCS: 70450; 71045; 72125; 72170; 80053; 83735; 84145; 84484; 85025; 85651; 86140; 93005; 96360; 99285; C9803; U0003; U0005

== ENCOUNTER 2022-11-29 15:00 | Outpatient (RCR) | payer OTHER, SELFPAY ==
--- NOTE | 2022-10-31 10:54 | HMH.PTOPEV ---
PT Outpatient Evaluation Rehab PT Outpatient Evaluation Start: 10/31/22 10:33 Freq: Status: Active Protocol: Document 10/31/22 10:34 SRINIVASATHIERRY (Rec: 10/31/22 10:53 INDIO [id number]) E-signed By David Parekh, PT Outpatient Therapy Subjective History Subjective History Patient is a 51 year old female presenting to outpatient PT with reports of BUE weakness and pain of insidious onset starting approximatley 1 year ago. Patient underwent triple bypass surgery approx 3 years ago. Patient does report mutiple falls at home from blacking out. Patient reports that she did hit her head during these falls, but did visit the ED on each occasion. Patient reports R>L arm pain/weakness. Comorbidities include hx of HTN, COPD and diabetes. Chief Complaint Pain,Weakness Symptom Type Burning Symptoms Relieved By Rest/Positioning Symptoms Aggravated By Physical Activity,Lifting Prior Functional Limitations None Current Functional Limitations Reaching,Lifting,Housework, Sleeping Symptom Description Intermittent Level of pain today (0-10) 1 Pain scale - at its best (0-10) 0 Pain scale - at its worst (0-10) 5 Shoulder/Elbow Eval Shoulder Objective Measurements Palpation Tenderness tenderness over the bicipital tendon bilateral shoulder exam standard Shoulder Palpation Overall Comment R>L 2/4 Posture Shoulder Posture Sitting Position (L) Rounded,(R) Rounded Shoulder Posture Standing Position (L) Rounded,(R) Rounded Scapula Posture Sitting Position (L) Protracted,(R) Protracted Scapular Posture Standing Position (L) Protracted,(R) Protracted Shoulder ROM Bilateral full ROM shoulder exam standard bilateral Shoulder MMT Right Shoulder Abduction Strength Grade 4- Good- Shoulder Extension Strength Grade 4- Good- Shoulder Flexion Strength Grade 4- Good- Shoulder External Rotation Strength 4- Good- Grade Shoulder Internal Rotation Strength 4- Good- Grade Left Shoulder Abduction Strength Grade 4 Good Shoulder Extension Strength Grade 4 Good Shoulder Flexion Strength Grade 4 Good Shoulder External Rotation Strength 4 Good Grade Shoulder Internal Rotation Strength 4 Good Grade
== END 2022-11-29 15:05 | disposition home or self-care (01) ==
LOC: PT 15:00
PROVIDERS: PCP Emergency Medicine; Visit Provider Internal Medicine
DX: R29.898 Other symptoms and signs involving the musculoskeletal system (principal); R53.1 Weakness
CPT/HCPCS: 97110; 97163

== ENCOUNTER → 2023-02-16 12:11 | Outpatient (CLI) | payer OTHER, SELFPAY ==
--- NOTE | 2023-02-16 12:49 | US_ITS ---
FINAL REPORT CLINICAL HISTORY: numbness in BLE,SMOKER,HTN,HLP,DM COMPARISON: None FINDINGS: ANKLE-BRACHIAL PRESSURE INDICES Pressure indices are as follows: RIGHT LOWER EXTREMITY: Ankle-brachial pressure index: 1.1 Comments: Normal LEFT LOWER EXTREMITY: Ankle-brachial pressure index: 1.2 Comments: Normal IMPRESSION: No evidence of significant obstructive peripheral vascular disease of the lower extremities Reviewed, Interpreted and Dictated by Michelle Welsh MD Transcribed by Zuly Sellers Authenticated and [facility]
--- NOTE | 2023-02-16 13:25 | MM_ITS ---
PROCEDURE INFORMATION: Exam: MG Bilateral Screening 3D Mammography Exam date and time: 02/16/2023 1:19 PM Age: 52 years old Clinical indication: Screening. No family history of breast cancer. TECHNIQUE: Imaging protocol: Bilateral Screening tomosynthesis and 2D mammography including computer-aided detection (CAD) when performed. COMPARISON: No relevant prior studies available. If prior mammograms are provided, I am happy to add an addendum. FINDINGS: MAMMOGRAPHY: Breast composition: The breasts are heterogeneously dense, which may obscure small masses. Mass: No suspicious mass. Architectural distortion: None. Calcifications: No suspicious calcifications. Asymmetric density: None. Skin thickening: None. Axillary adenopathy: None. IMPRESSION: No mammographic evidence of malignancy. Annual screening is recommended unless otherwise clinically indicated. ASSESSMENT: BI-RADS Category 1: Negative
[2023-02-16 14:23] LABS: Basophils # 0.1 K/mm3 (0-0.2); Basophils % 1.2 % (0.1-2.0); Eosinophils # 0.2 K/mm3 (0.0-0.4); Eosinophils % 2.2 % (0.1-12.0); Hematocrit 44.9 % (37.0-47.0); Hemoglobin 15.5 g/dL (12.2-16.2); Lymphocytes # 2.5 K/mm3 (0.7-4.5); Lymphocytes % 31.6 % (10-50); Mean Corpuscular HGB Conc 34.6 g/dL (31.8-35.4); Mean Corpuscular Hemoglobin 32.9 pg (27.0-31.2); Mean Corpuscular Volume 95.2 fl (81-99); Mean Platelet Volume 7.1 fl (7.4-10.4); Monocytes # 0.5 K/mm3 (0.1-1.0); Monocytes % 6.6 % (1.7-9.3); Neutrophils # 4.6 K/mm3 (1.8-7.8); Neutrophils % 58.5 % (37.0-80.0); Platelet Count 283 K/mm3 (142-424); Red Blood Count 4.72 M/mm3 (4.20-5.40); Red Cell Distribution Width 13.7 % (11.5-17.5); White Blood Count 7.9 K/mm3 (4.8-10.8)
[2023-02-16 14:41] LABS: Chloride 104 mmol/L (98-107); Potassium 4.4 mmoL/L (3.5-5.1); Sodium 140 mmol/L (136-145)
[2023-02-16 14:43] LABS: Blood Urea Nitrogen 9 mg/dl (7-17); Estimated Glomerular Filt Rate 87 ml/min (>60); GFR (African American) 106 ML/MIN (>60)
[2023-02-16 14:44] LABS: Alanine Aminotransferase 30 U/L (12-78); Albumin Level 4.1 g/dl (3.5-5.0); Alkaline Phosphatase 116 U/L (38-126); Anion Gap 9.4 mEq/L (5-15); Aspartate Amino Transferase 31 U/L (14-36); Bilirubin,Direct 0.3 mg/dl (0.0-0.4); Bilirubin,Indirect 0.2 mg/dL (0.0-0.9); Bilirubin,Total 0.5 mg/dl (0.2-1.3); Bilirubin,Unconjugated 0.2 mg/dL (0.0-1.1); Calcium 9.7 mg/dl (8.4-10.2); Carbon Dioxide 31 mmol/L (22.0-30.0); Cholesterol 242 mg/dl (140-200); Glucose 88 mg/dl (74-100); Triglycerides 295 mg/dl (30-150); VLDL Cholesterol 59 mg/dL (0-40)
[2023-02-16 14:45] LABS: Chol/HDL Ratio 4.1 (1-3.5); HDL Cholesterol 59 mg/dl (40-60)
[2023-02-16 14:56] LABS: Direct LDL Cholesterol 126.94 mg/dL (100-129)
[2023-02-16 15:00] LABS: Free T4 (Free Thyroxine) 0.93 ng/dl (0.78-2.19)
[2023-02-16 15:14] LABS: Thyroid Stimulating Hormone 1.72 uIU/mL (0.465-4.68)
== END ==
PROVIDERS: PCP Emergency Medicine; Visit Provider Nurse Practitioner Family
DX: I25.118 Atherosclerotic heart disease of native coronary artery with other forms of angina pectoris (principal); I10 Essential (primary) hypertension; R20.0 Anesthesia of skin; R20.2 Paresthesia of skin; E78.2 Mixed hyperlipidemia; I73.9 Peripheral vascular disease, unspecified; Z95.1 Presence of aortocoronary bypass graft; Z12.31 Encounter for screening mammogram for malignant neoplasm of breast
CPT/HCPCS: 36415; 77063; 77067; 80048; 80061; 80076; 83735; 84439; 84443; 85025; 93923

== ENCOUNTER → 2023-03-28 09:35 | Outpatient (CLI) | payer OTHER, SELFPAY | PROVIDERS: PCP Emergency Medicine; Visit Provider Nurse Practitioner Family | DX: R55 Syncope and collapse (principal); I25.10 Atherosclerotic heart disease of native coronary artery without angina pectoris; I10 Essential (primary) hypertension; E78.5 Hyperlipidemia, unspecified; Z95.1 Presence of aortocoronary bypass graft | CPT/HCPCS: 93270 ==

== ENCOUNTER → 2023-04-03 06:54 | Outpatient (CLI) | payer OTHER, SELFPAY ==
--- NOTE | 2023-04-03 06:54 | NM_ITS ---
APPROVED REPORT Exam: Nuclear Stress Test Indication: CAD, 1 STENT, CABG, 3 BY PASSES, HTN, HYPERLIPIDEMIA, TOB USE, FM HX, SOB, SYNCOPE, FATIGUE Patient Location: Outpatient Stress Tech: Clarita Alcocer [place] Tech:Aria Serrato, ARRT RT (R)(N)(M) Ht: 5 ft 4 in Wt: 165 lbs Bra Size: 44D HR: 67 bpm BP: 151/89 mmHg BSA: 1.80 m2 Rhythm: NSR TID: 1.08 BMI: 28.3 History: CAD, 1 STENT, 3v- CABG, , HTN, HYPERLIPIDEMIA, TOB USE, FM HX, SOB, SYNCOPE, FATIGUE Procedure: Patient exercised on Remi protocol 5:00 minutes and sec, resting heart rate 67 bpm, resting blood pressure 151/89 mmHg, with exercise maximum heart rate achived was 11 bpm which is 67 % of the maximum predicted heart rate and blood pressure was 164/92 mmHg. Test was stopped due to fatigue. Patient denied any complaint of chest pain. Patient has Poor exercise capacity, achieved 7.0 METs of workload on treadmill, the blood pressure response to exercise was Blunted. Cardiac Stress and Resting SPECT Images: Cardiac Stress and Resting SPECT images were obtained using technetium 99m Myoview 31.2 mCi stress and 9.78 mCi at rest. Raw imaging demonstrates significant soft tissue overlap with the cardiac borders (most notably on supine stress imaging). This may affect the diagnostic interpretation of the study findings. Also, the patient could not achieve target HR, therefore this is a suboptimal stress test. Resting and stress imaging in supine position demonstrate a medium sized, moderate, predominantly reversible perfusion defect in the mid to distal anterior and anterior lateral LV izquierdo. This is no longer visualized with prone stress imaging. Findings are suggestive of soft tissue attenuation. Gated imaging demonstrates normal global and regional LV systolic function. LVEF is calculated at 55%. Conclusion: Raw imaging demonstrates significant soft tissue overlap with the cardiac borders (most notably on supine stress imaging). This may affect the diagnostic interpretation of the study findings. Also, the patient could not achieve target HR, therefore this is a suboptimal stress test. Resting and stress imaging in supine position demonstrate a medium sized, moderate, predominantly reversible perfusion defect in the mid to distal anterior and anterior lateral LV izquierdo. This is no longer visualized with prone stress imaging. Findings are suggestive of soft tissue attenuation. Gated imaging demonstrates normal global and regional LV systolic function. LVEF is calculated at 55%. Of note, this is a nondiagnostic study due to inability to achieve target HR. Alternative imaging modalities to evaluate for ischemia are recommended. Electronically signed by : Danielle Barnes, 04/12/2023 23:02:37
--- NOTE | 2023-04-03 09:10 | CA_ITS ---
APPROVED REPORT Exam: Exercise Treadmill Technologist: Clarita Alcocer Ht: 5 ft 4 in Wt: 158 lbs BSA: 1.77 m2 HR: 56 bpm BP: 151/89 mmHg Rhythm: NSR Indications: Hypertension, CAD Medical History Medications: Amlodipine,,,,, Isosorbide,,,,, Aspirin,,,,, Metoprolol,,,,, Gabapentin,,,,, Vitamin D3,,,,, Pantoprazole,,,,, Duoneb,,,,, ClonAZEPAM,,,,, Albuterol,,,,, Trelegy,,,,, Stress Test Details Test: Remi HR Resting HR: 67 bpm Max Heart Rate (APMHR): 166 bpm Max HR Achieved: 111 bpm Target HR (85% APMHR): 141 bpm % of APMHR: 67 Recovery HR: 61 bpm HR response to stress: Blunted HR response to stress BP Resting BP: 151.0/89.0 mmHg Max BP: 164.0/92.0 mmHg Recovery BP: 144.0/86.0 mmHg BP response to stress: Blunted blood pressure response to stress. ECG Resting ECG: Sinus bradycardia, no ST changes Stress ECG: No significant ST changes Arrhythmia: None Recovery ECG: No significant ST changes Recovery Arrhythmia: None Clinical Exercise duration: 05:00 min Highest Stage Achieved: Exercise capacity: 7.0 METs Overall Exercise Capacity for Age: Poor Stress ECG Conclusion This was a suboptimal stress test as the patient could not achieve target HR. The patient was able to exercise for a total of 5 minutes, 0 seconds. She achieved a total of 7 METS. She has poor exercise capacity impaired to age and sex matched peers. She has blunted HR and BP response to exercise. Test stopped due to leg fatigue. Symptoms: Dyspnea, leg fatigue Arrhythmias/ectopy: None ST-T Changes: No significant ST changes Conclusion: Suboptimal stress test as the patient could not achieve target HR. Poor exercise capacity. Nondiagnostic ECG stress test due to inability to achieve target HR, but no significant ST changes at the HR achieved. Blunted BP and HR response to exercise. Test Summary REST . . . . . . . Sitting REST . . . . . . . Standing REST 08:39 0.0 0.0 67 . 151/ 89 . . Stage 1 01:00 10.0 1.7 94 . . . . Stage 1 02:00 10.0 1.7 96 . . . . Stage 1 03:00 10.0 1.7 96 . 150/ 94 . . Stage 2 . . . . . . . Myoview Injected Stage 2 01:00 12.0 2.5 105 . . . . Stage 2 02:00 12.0 2.5 111 . . . Stop exercise at 05:00 RECOVERY 01:00 0.0 0.0 84 . 164/ 92 . . RECOVERY 02:00 0.0 0.0 62 . 164/ 92 . . RECOVERY 03:00 0.0 0.0 63 . 157/ 92 . . RECOVERY 04:00 0.0 0.0 56 . 157/ 92 . . RECOVERY 05:00 0.0 0.0 64 . 144/ 86 . . RECOVERY 05:10 0.0 0.0 0 . 144/ 86 . . Electronically signed by : Danielle Barnes, 04/12/2023 22:57:42
== END ==
PROVIDERS: PCP Emergency Medicine; Visit Provider Nurse Practitioner Family
DX: I25.10 Atherosclerotic heart disease of native coronary artery without angina pectoris (principal); R55 Syncope and collapse; I10 Essential (primary) hypertension; E78.5 Hyperlipidemia, unspecified; Z95.1 Presence of aortocoronary bypass graft
CPT/HCPCS: 78452; 93017; A9502

== ENCOUNTER → 2023-04-17 12:26 | Outpatient (CLI) | payer OTHER, SELFPAY ==
--- NOTE | 2023-04-17 12:49 | CA_ITS ---
APPROVED REPORT EXAM: Comprehensive 2D, Doppler, and color-flow Echocardiogram Business Office Representative: Erika Kraft RVT Ht: 5 ft 4 in Wt: 160lbs BSA: 1.78 BP: 124/70 mmHg Indications: HTN,CAD,CABG,HTN,HLD,SMOKER 2D Dimensions LVOT 2.00 cm (M/F) 1.5-2.5 LA Volume 37.90 mL LA Volume Index 21.29 mL/m2 (M/F) 16-34 M-Mode Dimensions RVDd 2.60 cm (0.9-2.6) LA Diam 3.38 cm (1.9-4.0) LVDd 4.20 cm (3.5-5.7) Ao Diam 3.53 cm (2.0-3.7) LVDs 2.67 cm (3.5-5.7) IVSd 0.64 cm (0.6-1.1) PWd 0.68 cm (0.6-1.1) EF (Teich) 66.50% FS 36.40% EDV (Teich) 78.60 mL ESV (Teich) 26.30 mL LV Diastology E Decel Time 150.00 (160-240 msec) E/A Ratio 1.1 MED E' 6.80 (< 7 cm/sec) E'/MED E' Ratio 10.66 (>14) LAT E' 8.90 (<10 cm/sec) E/LAT E' Ratio 8.15 (>14) Aortic Valve AO Peak GR. 5.60 mmHg Mitral Valve MV E Max Mando. 73.00 (40-130 cm/s) MV A Velocity 68.00 (40-130 cm/s) E/A Ratio 1.06 MV Decel. Time 150.00 (160-240 ms) MV PHT 44.00 ms Pulmonary Valve PV Peak Velocity 73.00 (50-150 cm/s) Tricuspid Valve TR P. Velocity 202.00 cm/s RAP Estimate 10.00 mmHg RVSP 26.40 mmHg Left Ventricle The left ventricle is normal size. The left ventricular systolic function is normal. The left ventricular ejection fraction is within the normal range. There is normal left ventricular wall thickness. There is mild hypokinesis of the lateral, anterolateral, and inferolateral LV izquierdo. The left ventricular diastolic function is normal. LVEF is 50-55%. Right Ventricle The right ventricle is normal size. The right ventricular systolic function is normal. Atria The left atrium size is normal. The right atrium size is normal. Aortic Valve The aortic valve opens well. There is no aortic valvular stenosis. Trace aortic regurgitation. Mitral Valve The mitral valve is normal in structure. No evidence of mitral valve stenosis. Trace mitral regurgitation. Tricuspid Valve The tricuspid valve leaflets are thin and pliable. Trace tricuspid regurgitation. There is insufficient TR jet to estimate RVSP. Pulmonic Valve The pulmonary valve is normal in structure. Trace pulmonic regurgitation. Great Vessels The aortic root is normal in size. The ascending aorta is not well visualized. IVC is normal in size and collapses >50% with inspiration. Pericardium There is no pericardial effusion. Other Information Study Quality: Fair Conclusion Normal biventricular systolic function. Mild hypokinesis of the lateral, anterolateral, and inferolateral LV izquierdo. No significant valvular stenosis or regurgitation. Electronically signed by : Danielle Barnes MD 04/21/2023 12:38:53
== END ==
PROVIDERS: PCP Emergency Medicine; Visit Provider Nurse Practitioner Family
DX: R55 Syncope and collapse (principal); I25.10 Atherosclerotic heart disease of native coronary artery without angina pectoris; I10 Essential (primary) hypertension; E78.5 Hyperlipidemia, unspecified; Z95.1 Presence of aortocoronary bypass graft
CPT/HCPCS: 93306

== ENCOUNTER → 2023-04-24 06:43 | Outpatient (CLI) | payer OTHER, SELFPAY ==
--- NOTE | 2023-04-24 06:50 | NM_ITS ---
APPROVED REPORT Exam: Nuclear Stress Test Indication: CAD,CABG, HTN, HYPERLIPIDEMIA, TOB USE, ANGINA, SOB, PALPITATIONS, SYNCOPE, FATIGUE Patient Location: Outpatient Stress Tech: Clarita Alcocer CT Tech:JEROD Sims RT (R)(N)(M) Ht: 5 ft 4 in Wt: 165 lbs Bra Size: 44D HR: 62 bpm BP: 143/91 mmHg BSA: 1.80 m2 TID: 1.15 BMI: 28.3 History: CAD,CABG, HTN, HYPERLIPIDEMIA, TOB USE, ANGINA, SOB, PALPITATIONS, SYNCOPE, FATIGUE Procedure: Patient received 0.4 mg of intravenous Lexiscan, resting heart rate 62 bpm, resting blood pressure 143/91 mmHg, with Lexiscan maximum heart rate achieved was 92 bpm which is % of the maximum predicted heart rate and blood pressure was 139/93 mmHg. With Lexiscan, patient denied any complaint of chest pain. Cardiac Stress and Resting SPECT Images: Cardiac Stress and Resting SPECT images were obtained using technetium 99m Myoview 31.2 mCi stress and 10.56 mCi at rest. Resting and stress imaging in both supine and prone positions demonstrate a small sized, moderate, fixed perfusion defect in the distal anterior and apical LV wall. Gated imaging demonstrates low-normal global LV systolic function. There is mild hypokinesis of the distal anterior LV wall. LVEF is calculated at 52%. Conclusion: Small sized, moderate, fixed perfusion defect in the distal anterior and apical LV wall. No evidence of reversible ischemia. Gated imaging demonstrates low-normal global LV systolic function. There is mild hypokinesis of the distal anterior LV wall. LVEF is calculated at 52%. Electronically signed by : Danielle Barnes MD 04/28/2023 22:57:24
--- NOTE | 2023-04-24 09:55 | CA_ITS ---
APPROVED REPORT Exam: Pharmacologic Technologist: Clarita Alcocer Ht: 5 ft 4 in Wt: 160 lbs BSA: 1.78 m2 HR: 62 bpm BP: 143/91 mmHg Rhythm: NSR Indications: Syncope Medical History Medications: Amlodipine,,,,, Lisinopril,,,,, Isosorbide,,,,, Aspirin,,,,, Metoprolol,,,,, Gabapentin,,,,, Vitamin D3,,,,, Pantoprazole,,,,, Duoneb,,,,, ClonAZEPAM,,,,, Albuterol,,,,, Famotidine,,,,, Stress Test Details Test: LEXISCAN HR Resting HR: 65 bpm Max Heart Rate (APMHR): 166 bpm Max HR Achieved: 92 bpm Target HR (85% APMHR): 141 bpm % of APMHR: 55 Recovery HR: 75 bpm BP Resting BP: 143.0/91.0 mmHg Max BP: 144.0/92.0 mmHg Recovery BP: 144.0/92.0 mmHg ECG Resting ECG: Sinus rhythm, T wave changes in lateral leads Stress ECG: No significant ST changes Arrhythmia: None Clinical Exercise duration: 04:03 min Highest Stage Achieved: Exercise capacity: 1.0 METs Stress ECG Conclusion Symptoms: Dyspnea, nausea Arrhythmias/Ectopy: None ST-T Changes: No significant ST changes Conclusion: Unremarkable Lexiscan stress test. Myoview images are reported separately. Test Summary REST . . . . . . . Resting REST 08:16 . . 65 . 143/ 91 . . Stage 1 . . . . . . . Myoview Injected Stage 1 01:00 . . 92 . . . . Stage 2 01:00 . . 87 . 139/ 93 . . Stage 3 01:00 . . 83 . . . . Stage 4 01:00 . . 83 . 142/ 91 . . Stage 4 01:03 . . 81 . 142/ 91 . Stop exercise at 04:03 RECOVERY 01:00 . . 85 . 132/ 94 . . RECOVERY 02:00 . . 80 . 132/ 94 . . RECOVERY 03:00 . . 78 . 141/ 82 . . RECOVERY 04:00 . . 77 . 141/ 82 . . RECOVERY 05:00 . . 75 . 141/ 82 . . RECOVERY 06:00 . . 75 . 144/ 92 . . RECOVERY 06:45 . . 76 . 144/ 92 . . Electronically signed by : Danielle Barnes MD 04/28/2023 22:54:38
== END ==
PROVIDERS: PCP Emergency Medicine; Visit Provider Nurse Practitioner Family
DX: R55 Syncope and collapse (principal); I25.10 Atherosclerotic heart disease of native coronary artery without angina pectoris; I10 Essential (primary) hypertension; E78.5 Hyperlipidemia, unspecified; Z95.1 Presence of aortocoronary bypass graft
CPT/HCPCS: 78452; 93017; A9502; J2785

== ENCOUNTER 2023-04-25 07:02 | Day surgery (SDC) | payer OTHER, SELFPAY ==
[2023-04-25 07:18] VITALS: BMI 27.4
[2023-04-25 07:51] VITALS: BP 156/110; PULSE 75; RESP 20; O2SAT 96; O2SAT 97
[2023-04-25 08:15] VITALS: BP 169/102; PULSE 75; RESP 18; O2SAT 98
[2023-04-25 08:20] VITALS: BP 169/102; PULSE 77; RESP 20; O2SAT 96
--- NOTE | 2023-04-25 08:28 | EXP.LOOP ---
[facility] Loop Recorder Date: 04/25/23 Time: 09:00 Procedure Performed:: Implantation of loop recorder Indication:: Recurrent syncope Technique:: Patient was brought to the cardiac Fur Dressing Supervisor. After informed consent obtained, 1% lidocaine with epinephrine was used to anesthetize the site along the left anterior aspect of the chest near the sternal border. Using the preformed scalpel, an incision was made and using the supplied preloaded apparatus, the loop recorder was placed subcutaneously without difficulty. Following the deployment of the loop recorder interrogation of the device was performed to ensure appropriate voltage was being detected (0.30 mV). Once this was verified, Steri-Strips were placed over the incision and the patient was prepped to discharge home. Patient tolerated the procedure well with minimal discomfort. Impression:: Successful implantation of loop recorder Serial Number:: Gunner baker DX ICM [id number] Serial #[id number] Plan:: Routine postop care
== END 2023-04-25 08:33 | disposition home or self-care (01) ==
PROVIDERS: PCP Emergency Medicine; Visit Provider Internal Medicine
DX: R55 Syncope and collapse (principal); R07.9 Chest pain, unspecified; Z79.899 Other long term (current) drug therapy; I10 Essential (primary) hypertension; E78.5 Hyperlipidemia, unspecified; F17.210 Nicotine dependence, cigarettes, uncomplicated; Z95.1 Presence of aortocoronary bypass graft; I25.118 Atherosclerotic heart disease of native coronary artery with other forms of angina pectoris
CPT/HCPCS: 33285; C1764

== ENCOUNTER 2023-09-25 07:42 | Day surgery (SDC) | payer OTHER, SELFPAY ==
[2023-09-25] VITALS (16 sets, daily range): BP systolic 119–155; BP diastolic 70–94; PULSE 59–89; RESP 16–20; TEMP 35.5–36.9; O2SAT 93–96; BMI 28.1
--- NOTE | 2023-09-25 07:09 | IR_ITS ---
APPROVED REPORT Patient Location: Outpatient PROCEDURES Left heart catheterization Left ventriculogram Selective coronary angiogram Selective engagement of the left internal mammary artery to the LAD Selective engagement of the saphenous vein graft to the diagonal artery Selective engagement of saphenous vein graft to the right coronary INDICATION Coronary artery disease, History of coronary bypass surgery, Worsening angina pectoris Informed consent was obtained prior to the procedure. COMPLICATIONS NONE Estimated Blood Loss: LESS THAN 10 ML TECHNIQUE One percent lidocaine used to anesthetize the right groin. The right femoral artery was accessed via the Seldinger technique and a 5 Azeri sheath was placed in the right femoral artery. A JL 4, JR4 catheter were used to perform left heart catheterization, left ventriculogram selective coronary angiography as well as selective engagement of the 2 vein grafts and the left internal mammary artery. At the end of the procedure the patient was transferred to the postop holding area in stable condition for sheath removal. ANGIOGRAPHIC RESULTS The left main artery Is an ostial 10 to 20% stenosis and a distal 30% stenosis The left anterior descending artery Has ostial proximal calcified concentric 80% stenosis with mid vessel 90% stenosis. Competitive flow is identified from the left internal mammary artery. Medium sized first diagonal artery has 50% proximal stenosis with competitive flow from the saphenous vein graft The circumflex artery Is vestigial and gives rise to 2 small obtuse marginal arteries The right coronary artery Is large and dominant and has proximal 30% stenosis mid vessel 30 to 40% stenoses distal 30% stenoses. Competitive flow is identified from a large saphenous vein graft to the PDA The AUGUSTIN ventriculogram reveals Normal 65% The left ventricular end-diastolic pressure 20 mmHg KATZ is patent to a small LAD Saphenous vein graft is patent to a small first diagonal artery Saphenous vein graft to the right coronary is a large graft and anastomoses onto the posterior descending artery with backfilling of the posterolateral branch IMPRESSION Coronary artery disease as described above Normal ejection fraction Elevated LVEDP Patent KATZ to LAD Patent saphenous vein graft to small diagonal artery Patent saphenous vein graft to posterior descending artery PLAN 1. Continue medical management with aggressive risk factor modification Electronically signed by : Avni Mireles MD 09/25/2023 10:31:48
[2023-09-25 08:30] LABS: Chloride 108 mmol/L (98-107); Potassium 3.9 mmoL/L (3.5-5.1); Sodium 140 mmol/L (136-145)
[2023-09-25 08:33] LABS: Anion Gap 7.9 mEq/L (5-15); Blood Urea Nitrogen 8 mg/dl (7-17); Calcium 9.1 mg/dl (8.4-10.2); Carbon Dioxide 28 mmol/L (22.0-30.0); Creatinine Clearance Estimated 107 mL/min (50-200); Estimated Glomerular Filt Rate 87 ml/min (>60); GFR (African American) 105 ML/MIN (>60); Glucose 99 mg/dl (74-100)
[2023-09-25 08:41] LABS: Basophils % 0.7 % (0.1-2.0); Eosinophils # 0.2 K/mm3 (0.0-0.4); Eosinophils % 2.7 % (0.1-12.0); Hematocrit 42.2 % (37.0-47.0); Hemoglobin 13.8 g/dL (12.2-16.2); Lymphocytes # 2.1 K/mm3 (0.7-4.5); Lymphocytes % 31.9 % (10-50); Mean Corpuscular HGB Conc 32.7 g/dL (31.8-35.4); Mean Platelet Volume 10.6 fl (7.4-10.4); Monocytes # 0.5 K/mm3 (0.1-1.0); Monocytes % 7.5 % (1.7-9.3); Neutrophils # 3.8 K/mm3 (1.8-7.8); Neutrophils % 57.2 % (37.0-80.0); Platelet Count 287 K/mm3 (142-424); Red Blood Count 4.18 M/mm3 (4.20-5.40); White Blood Count 6.7 K/mm3 (4.8-10.8)
[2023-09-25] MEDS: FAMOTIDINE 20MG/2ML VIAL 20 MG IV (08:47)
[2023-09-25] MEDS: METHYLPREDNISOLONE SOD SUCC 125MG VIAL 125 MG IV (08:47)
[2023-09-25] MEDS: diphenhydrAMINE 50MG/ML VIAL 50 MG IV (10:06)
[2023-09-25] MEDS: 0.9 % SODIUM CHLORIDE 500 ML 25 ML IV (10:07)
[2023-09-25] MEDS: HEPARIN 1,000 UNITS/500ML NS (CATH LAB) 3000 UNIT IV (10:07)
[2023-09-25] MEDS: LIDOCAINE 1% 10ML MDV 20 ML IJ (10:07)
[2023-09-25] MEDS: FENTANYL 100MCG/2ML VIAL 50 MCG IV (10:27)
[2023-09-25] MEDS: MIDAZOLAM HCL 1MG/1ML 5ML VIAL 1 MG IV (10:27)
[2023-09-25] MEDS: IOPAMIDOL-370 (76%);100ML BOTTLE 50 ML IV (12:02)
== END 2023-09-25 13:35 | disposition home or self-care (01) ==
PROVIDERS: PCP Nurse Practitioner Family; Visit Provider Internal Medicine
DX: I25.110 Atherosclerotic heart disease of native coronary artery with unstable angina pectoris (principal); E78.5 Hyperlipidemia, unspecified; I10 Essential (primary) hypertension; J44.9 Chronic obstructive pulmonary disease, unspecified; R68.84 Jaw pain; R94.31 Abnormal electrocardiogram [ECG] [EKG]; Z95.1 Presence of aortocoronary bypass graft; F17.210 Nicotine dependence, cigarettes, uncomplicated; Z79.899 Other long term (current) drug therapy
CPT/HCPCS: 80048; 85025; 93459; 99152; C1725; C1769; C1894; J1644; Q9967

== ENCOUNTER 2024-05-13 11:20 | Outpatient (CLI) | payer OTHER, SELFPAY ==
[2024-05-13 12:03] LABS: Basophils # 0.1 K/mm3 (0-0.2); Basophils % 1.5 % (0.1-2.0); Eosinophils # 0.2 K/mm3 (0.0-0.4); Eosinophils % 2.1 % (0.1-12.0); Hematocrit 36.2 % (37.0-47.0); Hemoglobin 14.2 g/dL (12.2-16.2); Lymphocytes # 2.7 K/mm3 (0.7-4.5); Lymphocytes % 36.3 % (10-50); Mean Corpuscular HGB Conc 39.2 g/dL (31.8-35.4); Mean Corpuscular Volume 96.9 fl (81-99); Mean Platelet Volume 8.1 fl (7.4-10.4); Monocytes # 0.6 K/mm3 (0.1-1.0); Monocytes % 8.5 % (1.7-9.3); Neutrophils # 3.8 K/mm3 (1.8-7.8); Neutrophils % 51.6 % (37.0-80.0); Platelet Count 232 K/mm3 (142-424); Red Blood Count 3.74 M/mm3 (4.20-5.40); Red Cell Distribution Width 13.6 % (11.5-17.5); White Blood Count 7.3 K/mm3 (4.8-10.8)
[2024-05-13 12:24] LABS: Albumin Level 4.1 g/dl (3.5-5.0); Chloride 106 mmol/L (98-107); Potassium 4.2 mmoL/L (3.5-5.1); Sodium 139 mmol/L (136-145)
[2024-05-13 12:26] LABS: Bilirubin,Unconjugated 0.5 mg/dL (0.0-1.1); Blood Urea Nitrogen 8 mg/dl (7-17); Estimated Glomerular Filt Rate 74 ml/min (>60); GFR (African American) 90 ML/MIN (>60)
[2024-05-13 12:27] LABS: Alanine Aminotransferase 21 U/L (12-78); Alkaline Phosphatase 75 U/L (38-126); Anion Gap 9.2 mEq/L (5-15); Aspartate Amino Transferase 27 U/L (14-36); Bilirubin,Direct 0.1 mg/dl (0.0-0.4); Bilirubin,Indirect 0.5 mg/dL (0.0-0.9); Bilirubin,Total 0.6 mg/dl (0.2-1.3); Calcium 9.4 mg/dl (8.4-10.2); Carbon Dioxide 28 mmol/L (22.0-30.0); Cholesterol 255 mg/dl (140-200); Glucose 87 mg/dl (74-100); Magnesium 1.8 mg/dl (1.6-2.3); Total Protein,Serum 6.8 g/dl (6.3-8.2); Triglycerides 226 mg/dl (30-150); VLDL Cholesterol 45 mg/dL (0-40)
[2024-05-13 12:28] LABS: Chol/HDL Ratio 4.4 (1-3.5); HDL Cholesterol 58 mg/dl (40-60)
[2024-05-13 12:38] LABS: Direct LDL Cholesterol 150.01 mg/dL (100-129)
[2024-05-13 12:43] LABS: Free T4 (Free Thyroxine) 1.16 ng/dl (0.78-2.19)
[2024-05-13 12:58] LABS: Thyroid Stimulating Hormone 2.46 uIU/mL (0.465-4.68)
== END 2024-05-13 23:59 | disposition home or self-care (01) ==
LOC: LAB 11:24
PROVIDERS: PCP Nurse Practitioner; Visit Provider Nurse Practitioner
DX: R11.0 Nausea (principal); R00.1 Bradycardia, unspecified; R55 Syncope and collapse; I25.10 Atherosclerotic heart disease of native coronary artery without angina pectoris; I10 Essential (primary) hypertension; E78.2 Mixed hyperlipidemia; Z95.1 Presence of aortocoronary bypass graft; J44.9 Chronic obstructive pulmonary disease, unspecified
CPT/HCPCS: 36415; 80048; 80061; 80076; 83735; 84439; 84443; 85025; 93270

== ENCOUNTER 2024-11-11 10:30 | Outpatient (CLI) | payer OTHER, SELFPAY ==
[2024-11-11 10:47] LABS: Basophils # 0.1 K/mm3 (0-0.2); Basophils % 1.2 % (0.1-2.0); Eosinophils # 0.2 K/mm3 (0.0-0.4); Eosinophils % 2.1 % (0.1-12.0); Hematocrit 41.9 % (37.0-47.0); Hemoglobin 13.9 g/dL (12.2-16.2); Lymphocytes # 2.5 K/mm3 (0.7-4.5); Lymphocytes % 33.4 % (10-50); Mean Corpuscular HGB Conc 33.2 g/dL (31.8-35.4); Mean Corpuscular Hemoglobin 30.5 pg (27.0-31.2); Mean Corpuscular Volume 92.1 fl (81-99); Mean Platelet Volume 10.4 fl (7.4-10.4); Monocytes # 0.6 K/mm3 (0.1-1.0); Monocytes % 7.8 % (1.7-9.3); Neutrophils # 4.1 K/mm3 (1.8-7.8); Neutrophils % 55.2 % (37.0-80.0); Nucleated Red Blood Cells # 0 10^3/uL; Nucleated Red Blood Cells % 0 %; Platelet Count 277 K/mm3 (142-424); Red Blood Count 4.55 M/mm3 (4.20-5.40); Red Cell Distribution Width 12.9 % (11.5-17.5); Red Cell Distribution Width-SD 43.3 fL; White Blood Count 7.5 K/mm3 (4.8-10.8)
[2024-11-11 11:50] LABS: Alanine Aminotransferase 18 U/L (12-78); Albumin Level 3.7 g/dl (3.5-5.0); Alkaline Phosphatase 91 U/L (38-126); Anion Gap 11.2 mEq/L (5-15); Aspartate Amino Transferase 23 U/L (14-36); Bilirubin,Direct 0.2 mg/dl (0.0-0.4); Bilirubin,Indirect 0.3 mg/dL (0.0-0.9); Bilirubin,Total 0.5 mg/dl (0.2-1.3); Bilirubin,Unconjugated 0.3 mg/dL (0.0-1.1); Blood Urea Nitrogen 7 mg/dl (7-17); Calcium 8.9 mg/dl (8.4-10.2); Carbon Dioxide 26 mmol/L (22.0-30.0); Chloride 105 mmol/L (98-107); Chol/HDL Ratio 2.5 (1-3.5); Cholesterol 146 mg/dl (140-200); Estimated Glomerular Filt Rate 87 ml/min (>60); GFR (African American) 105 ML/MIN (>60); Glucose 85 mg/dl (74-100); HDL Cholesterol 59 mg/dl (40-60); Magnesium 1.8 mg/dl (1.6-2.3); Potassium 4.2 mmoL/L (3.5-5.1); Sodium 138 mmol/L (136-145); Total Protein,Serum 6.5 g/dl (6.3-8.2); Triglycerides 147 mg/dl (30-150); VLDL Cholesterol 29 mg/dL (0-40)
[2024-11-11 11:57] LABS: Free T4 (Free Thyroxine) 1.09 ng/dl (0.78-2.19)
[2024-11-11 12:01] LABS: Direct LDL Cholesterol 63.45 mg/dL (100-129)
[2024-11-11 12:20] LABS: Thyroid Stimulating Hormone 1.26 uIU/mL (0.465-4.68)
[2024-11-15 21:28] LABS: Metanephrine Plasma < 25.0 pg/mL (0.0-88.0)
[2024-11-16 14:10] LABS: Renin Activity, Plasma < 0.167 ng/mL/hr (0.167-5.380)
[2024-11-22 10:31] LABS: Dopamine, Plasma < 10.0 pg/mL (0.0-36.7); Norepinephrine, Plasma 194 pg/mL (115-524)
== END 2024-11-11 23:59 | disposition home or self-care (01) ==
LOC: LAB 10:31
PROVIDERS: PCP Nurse Practitioner Family; Visit Provider Physician Assistant
DX: R00.1 Bradycardia, unspecified (principal); R55 Syncope and collapse; J44.9 Chronic obstructive pulmonary disease, unspecified; Z95.1 Presence of aortocoronary bypass graft; E78.5 Hyperlipidemia, unspecified; I11.9 Hypertensive heart disease without heart failure; I25.10 Atherosclerotic heart disease of native coronary artery without angina pectoris; R42 Dizziness and giddiness; F17.210 Nicotine dependence, cigarettes, uncomplicated
CPT/HCPCS: 36415; 80048; 80061; 80076; 82088; 82384; 83735; 83835; 84244; 84439; 84443; 85025

== ENCOUNTER 2024-11-13 11:59 | Outpatient (CLI) | payer OTHER, SELFPAY ==
[2024-11-21 11:12] LABS: Metanephrine, U,24hr 64 ug/24 hr (36-209); Metanephrine, Ur 80 ug/L (Undefined); Normetanephr.,U,24h 129 ug/24 hr (131-612); Normetanephrine, Ur 161 ug/L (Undefined)
[2024-11-21 14:20] LABS: Dopamine, Ur, 24hr 137 ug/24 hr (0-510); Dopamine, Urine 171 ug/L (Undefined); Epinephrine, U, 24hr 4 ug/24 hr (0-20); Epinephrine, Urine 5 ug/L (Undefined); Norepinephrine, Ur 26 ug/L (Undefined); Norepinephrine,U,24h 21 ug/24 hr (0-135); VMA, Urine 2.5 mg/L (Undefined)
== END 2024-11-13 23:59 | disposition home or self-care (01) ==
LOC: LAB.DROPOF 12:00
PROVIDERS: PCP Nurse Practitioner Family; Visit Provider Physician Assistant
DX: I25.10 Atherosclerotic heart disease of native coronary artery without angina pectoris (principal); R00.1 Bradycardia, unspecified; I10 Essential (primary) hypertension; J44.9 Chronic obstructive pulmonary disease, unspecified; R55 Syncope and collapse; R42 Dizziness and giddiness; E78.2 Mixed hyperlipidemia; Z95.1 Presence of aortocoronary bypass graft
CPT/HCPCS: 82384; 83835; 84585

== ENCOUNTER 2024-11-17 13:11 | Outpatient (CLI) | payer OTHER, SELFPAY ==
--- NOTE | 2024-11-17 13:30 | CA_ITS ---
FINAL REPORT TECHNIQUE: Thacker scale, color and spectral doppler images of the bilateral carotid arteries were obtained. CLINICAL HISTORY: SYNCOPE,HTN,SMOKER,DIZZINESS COMPARISON: 06/08/2022 FINDINGS: Peak systolic velocity in the right internal carotid artery is 176 cm/sec. The internal carotid to common carotid artery ratio is 3.1. There is 50 to 69% carotid artery stenosis and moderate plaque formation. The right vertebral artery is normal in direction. Peak systolic velocity in the left internal carotid artery is 82 cm/sec. The internal carotid to common carotid artery ratio is 1.2. There is no significant carotid artery stenosis and no significant plaque formation. The left vertebral artery is normal in direction. IMPRESSION: 50 to 69% right carotid artery stenosis, with moderate plaque formation. No significant left internal carotid artery stenosis and no significant plaque formation. Would consider CTA of the carotid arteries for further evaluation as clinically indicated. Reviewed, Interpreted and Dictated by Michelle Welsh MD Transcribed by Magdalene Virgen Authenticated and [facility]
== END 2024-11-17 23:59 | disposition home or self-care (01) ==
LOC: RT 13:11
PROVIDERS: PCP Nurse Practitioner Family; Visit Provider Physician Assistant
DX: R42 Dizziness and giddiness (principal); R55 Syncope and collapse
CPT/HCPCS: 93880

== ENCOUNTER 2025-01-28 14:37 | Outpatient (CLI) | payer OTHER, SELFPAY ==
--- OUTSIDE RECORDS SUMMARY | 2025-01-28 14:42 | XMS_ITS | Clinical Summary ---
Author Organization Healthcare Address [address] [id number] Care Team Providers Care Release Of Information Specialist Name Role Phone Venkat Fabian MD Primary Care Provider Allergies Active Allergy Reactions Criticality Noted Date Comments Bee Pollen Unknown - Patient st ates they do not know rxn details Low 04/13/2015 Codeine Unknown - Patient st ates they do not know rxn details Low 01/13/2015 Iv Contrast Unknown - Patient st ates they do not know rxn details Low 04/13/2015 Medications aspirin 81 MG EC tablet TAKE 1 TABLET DAILY. 03/11/2020 Active lisinopril 40 MG tablet TAKE 1 TABLET DAILY DIRECTED. 08/03/2020 Active metoprolol tartrate (Lopressor) 50 MG tablet TAKE 1 TABLET TWICE DAILY. 08/03/2020 Active rosuvastatin (Crestor) 20 MG tablet TAKE 1 TABLET DAILY. 08/03/2020 Active Active Problems Problem Noted Date Diagnosed Date Microalbuminuria 07/19/2020 Coronary artery disease 03/10/2020 Hyperlipidemia 03/10/2020 Hypertension 03/10/2020 Family History Medical History Relation Name Comments Hypertension Brother Relation Name Status Comments Brother Social History Tobacco Use Types Packs/Day Years Used Date Smoking Tobacco: Every Day Smokeless Tobacco: Never Alcohol Use Standard Drinks/Week Comments No 0 (1 standard drink = 0.6 oz pur e alcohol) Comments Unknown Sex and Gender Information Value Date Recorded Sex Assigned at Not on file Legal Sex Female 7:28 PM EDT Gender Identity Not on file Sexual Orientation Not on file Last Filed Vital Signs Vital Sign Reading Time Taken Comments Blood Pressure 164/92 04/22/2020 1:47 PM EDT Pulse 98 04/22/2020 1:47 PM EDT Temperature 36.6 C (97.9 F) 04/22/2020 1:47 PM EDT Respiratory Rate - - Oxygen Saturation - - Inhaled Oxygen Concentration - - Weight 80.3 kg (177 lb 0.5 oz) 04/22/2020 1:47 P M EDT Height 162.6 cm (5' 4 ) 04/22/2020 1:47 PM EDT Body Mass Index 30.39 04/22/2020 1:47 PM EDT Plan of Treatment Health Maintenance Due Date Last Done Comments [facility]-Depression Screening 1968 [facility]-/Child/Adol SDOH Screenings 1968 [facility]- SDOH Screenings 1986 [facility]-Adult SDOH Screenings 1986 [facility]-DTaP,Tdap,and Td Vaccine s (1 - Tdap) 1987 [facility]-Hepatitis B Vaccines (1 of 3 - 19+ 3-dose series) 1987 [facility]-Pap Smear 1989 [facility]-Cervical Cancer Screening 1998 [facility]-HPV/Cotest 1998 CT Colonography 2013 Colonoscopy 2013 FIT-DNA 2013 FIT 2013 FOBT 2013 Sigmoidoscopy 2013 [facility]-Colorectal Cancer Screening 2013 [facility]-Pneumococcal Vaccine: 50 + Years (1 of 1 - PCV) 2018 [facility]-Zoster Vaccines (1 of 2) 2018 [id number] Vaccine (1 - 2023- season) 2024 [facility]-Influenza Vaccine ([place] n Ended) 2025 [facility]-Diabetes: Hemoglobin A1C Discontinued , 03/11/2020, 01/13/2015 HPV Vaccines Aged Out No longer eligi ble based on patient's age to complete this topic [facility]-HIB Vaccines Aged Out No longer e ligible based on patient's age to complete this topic [facility]-Hepatitis A Vaccines Aged Out No longer eligible based on patient's age to complete this topic [facility]-IPV Vaccines Aged Out No longer e ligible based on patient's age to complete this topic [facility]-Rotavirus Vaccines Aged Out No lo nger eligible based on patient's age to complete this topic Procedures Procedure Name Priority Date/Time Associated Diagnosis Comments HEMOGLOBIN A1C Routine 03/24/2020 4:45 PM EDT from Last 3 Months or Most Recently Relevant to Health Maintenance Results * (ABNORMAL) Hemoglobin A1c (03/24/2020 4:45 PM EDT) Hemoglobin A1c 6.4(H) 4.7 - 6.0 % SUNQUEST Comment: Glycohemoglobin Reference Range, 0 years and up: 4.7 to 6.0% . HA1C Interpretive Data: Diagnosis of Diabetes: Diabetic > or = 6.5% Pre-diabetic 5.7 to 6.4% Non-diabetic < or = 5.6% . Glycemic Targets for Type I and Type II Diabetics: Non- Adults <7.0% Adults <6.0% Children and Adolescents <7.5% . Source: [place] [employer]. Standards of medical care in diabetes, 2017. Diabetes Care.2017:40 (suppl 1):S1-S135. . HbA1c assay performed by an ion-exchange chromatography method that is certified traceable to the DCCT. 03/24/2020 4:45 PM EDT 03/24/2020 5:21 PM EDT Venkat Bay MD LAB BLOOD ORDERABLES Final R esult SUNQUEST from Last 3 Months or Most Recently Relevant to Health Maintenance [facility] Care Teams Release Of Information Specialist Relationship Specialty Start Date End Date Venkat Fabian MD [address] [id number] PCP - General 12/10/20
[2025-01-28 15:19] LABS: Hematocrit 42.2 % (37.0-47.0); Hemoglobin 14.5 g/dL (12.2-16.2); Immature Granulocytes % 0.2 %; Mean Corpuscular HGB Conc 34.4 g/dL (31.8-35.4); Mean Corpuscular Hemoglobin 31.7 pg (27.0-31.2); Mean Corpuscular Volume 92.1 fl (81-99); Nucleated Red Blood Cells % 0 %; Platelet Count 262 K/mm3 (142-424); Red Blood Count 4.58 M/mm3 (4.20-5.40); Red Cell Distribution Width-SD 43.6 fL; White Blood Count 6.6 K/mm3 (4.8-10.8)
[2025-01-28 16:11] LABS: Alanine Aminotransferase 15 U/L (12-78); Albumin Level 4.4 g/dl (3.5-5.0); Alkaline Phosphatase 81 U/L (38-126); Anion Gap 13.1 mEq/L (5-15); Aspartate Amino Transferase 25 U/L (14-36); Bilirubin,Direct 0.2 mg/dl (0.0-0.4); Bilirubin,Indirect 0.7 mg/dL (0.0-0.9); Bilirubin,Total 0.9 mg/dl (0.2-1.3); Bilirubin,Unconjugated 0.6 mg/dL (0.0-1.1); Blood Urea Nitrogen 11 mg/dl (7-17); Calcium 10.0 mg/dl (8.4-10.2); Carbon Dioxide 30 mmol/L (22.0-30.0); Chloride 99 mmol/L (98-107); Cholesterol 236 mg/dl (140-200); Creatinine,Serum 0.80 mg/dl (0.52-1.04); Estimated Glomerular Filt Rate 74 ml/min (>60); GFR (African American) 90 ML/MIN (>60); Glucose 93 mg/dl (74-100); HDL Cholesterol 57 mg/dl (40-60); Magnesium 1.8 mg/dl (1.6-2.3); Potassium 4.1 mmoL/L (3.5-5.1); Sodium 138 mmol/L (136-145); Total Protein,Serum 7.1 g/dl (6.3-8.2); Triglycerides 177 mg/dl (30-150)
[2025-01-28 16:28] LABS: Free T4 (Free Thyroxine) 1.10 ng/dl (0.78-2.19)
[2025-01-28 16:41] LABS: Thyroid Stimulating Hormone 1.50 uIU/mL (0.465-4.68)
== END 2025-01-28 23:59 | disposition home or self-care (01) ==
LOC: LAB 14:39
PROVIDERS: PCP Nurse Practitioner Family; Visit Provider Nurse Practitioner Family
DX: I25.10 Atherosclerotic heart disease of native coronary artery without angina pectoris (principal); I10 Essential (primary) hypertension
CPT/HCPCS: 36415; 80048; 80061; 80076; 82088; 83735; 84439; 84443; 85025

== ENCOUNTER 2025-02-02 14:37 | Outpatient (CLI) | payer OTHER, SELFPAY ==
--- OUTSIDE RECORDS SUMMARY | 2025-02-02 14:41 | XMS_ITS | Clinical Summary ---
Author Organization Healthcare Address [address] [id number] Care Team Providers Care Vamp Presser Name Role Phone Venkat Fabian MD Primary [...] 2018 [facility]-Zoster Vaccines (1 of 2) 2018 [id number] Vaccine (1 - 2023- season) 2024 [facility]-Influenza Vaccine (#1) 2025 [facility]-Diabetes: Hemoglobin A1C Discontinued , 03/11/2020, [...] <6.0% Children and Adolescents <7.5% . Source: [place] [employer]. Standards of medical care in diabetes, 2017. Diabetes Care.2017:40 (suppl 1):S1-S135. . HbA1c assay performed by an ion-exchange chromatography method that is certified traceable to the DCCT. 03/24/2020 4:45 PM EDT 03/24/2020 5:21 PM EDT Venkat Bay MD LAB BLOOD ORDERABLES Final R esult SUNQUEST from Last 3 Months or Most Recently Relevant to Health Maintenance Insurance NA [facility] MEDICAID Care Teams Vamp Presser Relationship Specialty Start Date End Date Rui, Venkat S, MD [address] [place] [address] PCP - General 12/10/20
[2025-02-05 15:20] LABS: Dopamine, Ur, 24hr 193 ug/24 hr (0-510); Dopamine, Urine 297 ug/L (Undefined); Epinephrine, U, 24hr 6 ug/24 hr (0-20); Epinephrine, Urine 9 ug/L (Undefined); Norepinephrine, Ur 24 ug/L (Undefined); Norepinephrine,U,24h 16 ug/24 hr (0-135); VMA, Urine 6.0 mg/L (Undefined); VMA, Urine, 24hr 3.9 mg/24 hr (0.0-7.5)
[2025-02-06 16:12] LABS: Metanephrine, U,24hr 100 ug/24 hr (36-209); Metanephrine, Ur 154 ug/L (Undefined); Normetanephr.,U,24h 217 ug/24 hr (131-612)
== END 2025-02-02 23:59 | disposition home or self-care (01) ==
LOC: LAB.DROPOF 14:37
PROVIDERS: PCP Nurse Practitioner Family; Visit Provider Nurse Practitioner Family
DX: I10 Essential (primary) hypertension (principal); I25.10 Atherosclerotic heart disease of native coronary artery without angina pectoris
CPT/HCPCS: 82384; 83835; 84585

== ENCOUNTER 2025-02-03 11:11 | Outpatient (CLI) | payer OTHER, SELFPAY ==
--- OUTSIDE RECORDS SUMMARY | 2025-02-03 11:15 | XMS_ITS | Clinical Summary ---
Author Organization Healthcare Address [address] [id number] Care Team Providers Care Farm Equipment Technician Name Role Phone Venkat Fabian MD Primary [...] 2018 [facility]-Zoster Vaccines (1 of 2) 2018 [id number] Vaccine (1 - 2023- season) 2024 [facility]-Influenza [...] <6.0% Children and Adolescents <7.5% . Source: [place] [employer]. Standards of medical care in diabetes, 2017. Diabetes Care.2017:40 (suppl 1):S1-S135. . HbA1c assay performed by an ion-exchange chromatography method that is certified traceable to the DCCT. 03/24/2020 4:45 PM EDT 03/24/2020 5:21 PM EDT Venkat Bay MD LAB BLOOD ORDERABLES Final R esult SUNQUEST from Last 3 Months or Most Recently Relevant to Health Maintenance Insurance NA [facility] MEDICAID Care Teams Farm Equipment Technician Relationship Specialty Start Date End Date Rui, Venkat S, MD [address] [place] [address] PCP - General 12/10/20
== END 2025-02-03 23:59 | disposition home or self-care (01) ==
LOC: LAB 11:12
PROVIDERS: PCP Nurse Practitioner Family; Visit Provider Nurse Practitioner Family
DX: I10 Essential (primary) hypertension (principal); I25.10 Atherosclerotic heart disease of native coronary artery without angina pectoris
CPT/HCPCS: 36415; 82384; 83835

== ENCOUNTER 2025-02-12 08:36 | Outpatient (CLI) | payer OTHER, SELFPAY ==
--- OUTSIDE RECORDS SUMMARY | 2025-02-12 08:38 | XMS_ITS | Clinical Summary ---
Author Organization Healthcare Address [address] [id number] Care Team Providers Care Personal Injury Legal Assistant Name Role Phone Venkat Fabian MD Primary Care Provider [phone] Allergies Active Allergy Reactions Criticality Noted Date [...] Date Last Done Comments [facility]-Depression Screening 1968 [facility]-Infant/Child/Adol SDOH Screenings 1968 [facility]- SDOH Screenings 1986 [...] 2018 [facility]-Zoster Vaccines (1 of 2) 2018 [id number] Vaccine (1 - 2023- season) 2024 [facility]-Influenza [...] <6.0% Children and Adolescents <7.5% . Source: [place] [employer]. Standards of medical care in diabetes, 2017. Diabetes Care.2017:40 (suppl 1):S1-S135. . HbA1c assay performed by an ion-exchange chromatography method that is certified traceable to the DCCT. 03/24/2020 4:45 PM EDT 03/24/2020 5:21 PM EDT Venkat Bay MD LAB BLOOD ORDERABLES Final R esult SUNQUEST from Last 3 Months or Most Recently Relevant to Health Maintenance Insurance NA [facility] MEDICAID Care Teams Personal Injury Legal Assistant Relationship Specialty Start Date End Date Rui, Venkat S, MD [address] [place] [address] PCP - General 12/10/20
--- NOTE | 2025-02-12 09:00 | CA_ITS ---
FINAL REPORT CLINICAL HISTORY: HTN, CAD, Smoker FINDINGS: Aorta velocity: 71 cm/sec Right kidney: 10.1 cm. No evidence of hydronephrosis or mass. Right intrarenal RI: 0.63-0.71 Right renal artery velocity: 142 cm/sec. Right RAR (Renal artery-Aortic Ratio): 2.0 Left Kidney: 9.8 cm. No evidence of hydronephrosis or mass. Left intrarenal RI: 0.66-0.68 Left renal artery velocity: 193 cm/sec. Left RAR (Renal Artery-Aortic Ratio): 2.7 IMPRESSION: Less than 50% stenosis bilaterally. Reviewed, Interpreted and Dictated by Shari Bhatt MD Transcribed by Chayo Liu Authenticated and [facility]
--- NOTE | 2025-02-12 10:00 | US_ITS ---
FINAL REPORT CLINICAL HISTORY: I15.0 - Renovascular hypertension FINDINGS: RENAL ULTRASOUND Ultrasound images of the kidneys were obtained. The right kidney measures 9.4 cm in length. It is normal echogenicity. There is no hydronephrosis. The left kidney measures 9.8 cm in length. It is normal echogenicity. There is no hydronephrosis. IMPRESSION: Normal renal ultrasound. Reviewed, Interpreted and Dictated by Shari Bhatt MD Transcribed by Chayo Liu Authenticated and [facility]
== END 2025-02-12 23:59 | disposition home or self-care (01) ==
PROVIDERS: PCP Nurse Practitioner Family; Visit Provider Nurse Practitioner Family
DX: I70.1 Atherosclerosis of renal artery (principal); I25.10 Atherosclerotic heart disease of native coronary artery without angina pectoris; I10 Essential (primary) hypertension; I15.0 Renovascular hypertension; F17.200 Nicotine dependence, unspecified, uncomplicated; R42 Dizziness and giddiness; R55 Syncope and collapse; Z95.1 Presence of aortocoronary bypass graft
CPT/HCPCS: 76770; 93976

== ENCOUNTER 2025-02-17 07:15 | Day surgery (SDC) | payer OTHER, SELFPAY ==
[2025-02-16 09:49] VITALS: BMI 27.4
[2025-02-17] VITALS (7 sets, daily range): BP systolic 101–130; BP diastolic 61–78; PULSE 72–80; RESP 16; TEMP 36.1–36.6; O2SAT 94–99
[2025-02-17] MEDS: CYCLOPENTOLATE 2% OPHTH SOLN 2ML BOTTLE OP ×3 (08:15→08:25)
[2025-02-17] MEDS: TETRACAINE 0.5% OPTH SOL 15ML OP ×4 (08:15→08:39)
[2025-02-17] MEDS: PHENYLEPHRINE 2.5% OPHTH SOLN 2ML OP ×3 (08:15→08:25)
[2025-02-17] MEDS: MIDAZOLAM 2MG/2ML VIAL 2 MG (08:37)
[2025-02-17] MEDS: TIMOLOL 0.5% OPTH SOLN 5ML OP (08:46)
[2025-02-17] MEDS: TOBRAMYCIN/DEX OPTH SUSP 2.5ML OP (08:46)
[2025-02-17] MEDS: LIDOCAINE 1% PF 2ML VIAL 2 ML IJ (08:47)
[2025-02-17] MEDS: SODIUM CHLORIDE 0.9% 10ML FLUSH SYRINGE 10 ML IV (08:49)
--- NOTE | 2025-02-17 11:34 | HMH.PROCNOTE ---
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 The patient reports that this interferes with ADLs such as reading, watching TV and/or driving or the vision is like looking through a foggy haze and is very troubling. The patient was examined and found to have a visually significant cataract with best corrected vision of [20/400] by refraction and/or glare testing. Treatment options, risks and benefits were explained and the patient elected to have cataract surgery in an attempt to improve their vision. The patient had the eye anesthetized with topical tetracaine, the eye ways prepped and draped in the usual fashion for cataract surgery. A paracentesis and a temporal keratotomy were made. 0.2cc of 1% lidocaine PF was placed into the anterior chamber. And aqueous/viscoelastic exchange was done and a 360 degree capsulorexis was performed. Through hydrodissection and delineation with BSS on a cannula was done. The lens nucleus was phecoemulsified with CDE of [6.22]. Residual cortical material was removed using automated I&A The capsular bag was deepened with viscoelastica and a PCIOL was placed in the capsular bag with good centration and stability. Residual viscoelastic was removed using automated I&A. The keratotomy incision was hydrated with BSS on a cannula. The wound were checked and found to be water tight. IOP was checked digitally and adjusted as needed so as not to be too high. 1 drop of timolol 0.5%, ofloxacin, prednisolone acetate and ketorolac was instilled and eye shield taped over the eye. The patient was taken to recovery in good condition and will be seen postoperatively.
== END 2025-02-17 09:10 | disposition home or self-care (01) ==
PROVIDERS: PCP Nurse Practitioner Family; Visit Provider Ophthalmology
PROC: (CPT 66984; principal; 2025-02-17 09:00)
DX: H25.812 Combined forms of age-related cataract, left eye (principal); F41.9 Anxiety disorder, unspecified; F17.210 Nicotine dependence, cigarettes, uncomplicated; E78.5 Hyperlipidemia, unspecified; K21.9 Gastro-esophageal reflux disease without esophagitis; I25.10 Atherosclerotic heart disease of native coronary artery without angina pectoris; I10 Essential (primary) hypertension; J44.9 Chronic obstructive pulmonary disease, unspecified; Z88.5 Allergy status to narcotic agent; Z91.041 Radiographic dye allergy status; Z91.030 Bee allergy status; Z79.899 Other long term (current) drug therapy; Z79.82 Long term (current) use of aspirin; Z97.3 Presence of spectacles and contact lenses; Z86.73 Personal history of transient ischemic attack (TIA), and cerebral infarction without residual deficits; Z79.620 Long term (current) use of immunosuppressive biologic
CPT/HCPCS: 66984; J2250; V2632

== ENCOUNTER 2025-07-21 09:56 | Outpatient (CLI) | payer OTHER, SELFPAY ==
--- OUTSIDE RECORDS SUMMARY | 2025-07-21 10:04 | XMS_ITS | Clinical Summary ---
Author Organization Healthcare Address [address] [id number] Care Team Providers Care Self Sealing Fuel Tank Repairer Name Role Phone Venkat Fabian MD Primary Care Provider [phone] Allergies Active Allergy Reactions Criticality Noted Date [...] 2018 [facility]-Zoster Vaccines (1 of 2) 2018 [id number] Vaccine (1 - 2024- season) 2025 [facility]-Influenza Vaccine (#1) 2025 [facility]-Diabetes: Hemoglobin A1C Discontinued , 03/11/2020, 01/13/2015 HPV Vaccines (No Doses Required) Completed [facility]-HIB Vaccines Aged Out No longer e [...] <6.0% Children and Adolescents <7.5% . Source: [place] [employer]. Standards of medical care in diabetes, 2017. Diabetes Care.2017:40 (suppl 1):S1-S135. . HbA1c assay performed by an ion-exchange chromatography method that is certified traceable to the DCCT. 03/24/2020 4:45 PM EDT 03/24/2020 5:21 PM EDT us Venkat Bay MD LAB BLOOD ORDERABLES Final R esult SUNQUEST from Last 3 Months or Most Recently Relevant to Health Maintenance Insurance MEDICAID Care Teams Self Sealing Fuel Tank Repairer Relationship Specialty Start Date End Date Venkat Fabian MD [address] [place] [address] [place] [address] PCP - General 12/10/20
[2025-07-21 10:31] LABS: Blood Urea Nitrogen 15 mg/dl (7-17); Creatinine,Serum 0.90 mg/dl (0.52-1.04); Estimated Glomerular Filt Rate 65 ml/min (>60); GFR (African American) 78 ML/MIN (>60)
--- NOTE | 2025-07-21 10:45 | CT_ITS ---
FINAL REPORT CLINICAL HISTORY: claudication COMPARISON: None FINDINGS: CT ABDOMEN, CT PELVIS, CTA ABDOMEN, CTA PELVIS AND CTA LOWER EXTREMITY RUNOFF COMPARISON: None TECHNIQUE: Thin section axial CT with IV contrast supplemented with 3D MIP reconstruction under CT Angiogram protocol This study was performed with techniques to keep radiation doses as low as reasonably achievable, (ALARA). Individualized dose reduction techniques using automated exposure control or adjustment of mA and/or kV according to the patient's size were employed. FINDINGS: CT ANGIOGRAM ABDOMEN AND PELVIS: Abdominal aorta shows no significant stenosis, aneurysm or dissection. Minimal plaque is noted in the abdominal aorta. Central mesenteric and renal arteries are widely patent. Iliac vessels show no significant stenosis, dissection or aneurysm. CTA RIGHT LOWER EXTREMITY: There is continuous runoff with minimal scattered plaque disease in the superficial femoral artery and popliteal artery. There is mild right mid popliteal stenosis measuring up to 30%. Motion artifact is present in views of the calf, but there appears to be three-vessel runoff of the calf. CTA LEFT LOWER EXTREMITY: The femoral and popliteal vessels show no significant stenosis or occlusion. There is three-vessel runoff of the calf. Abdomen: Solid abdominal organs are grossly unremarkable. No bowel obstruction is seen. Note is made of a large duodenal diverticulum measuring 3 cm in diameter. There is no free fluid or free air. Pelvis: Pelvic bowel loops are unremarkable. No mass or fluid collection is seen. IMPRESSION: 1. Mild right mid popliteal stenosis as described, with exam of the calf on the right slightly limited secondary to motion artifact. 2. Otherwise, no significant arterial inflow or outflow disease of the lower extremities. This study was performed using automated techniques to achieve radiation exposure as low as reasonably achievable Reviewed, Interpreted and Dictated by Shari Bhatt MD Transcribed by Magdalene Virgen Authenticated and . [facility]
[2025-07-21] MEDS: 0.9 % SODIUM CHLORIDE 50 ML VIAL IV (11:08)
[2025-07-21] MEDS: SODIUM CHLORIDE 0.9% 10ML SYR (RAD ONLY) 10 ML IV (11:08)
[2025-07-21] MEDS: IOPAMIDOL-370 (76%);100ML BOTTLE 120 ML IV (11:09)
== END 2025-07-21 23:59 | disposition home or self-care (01) ==
LOC: RAD 09:57
PROVIDERS: PCP Nurse Practitioner Family; Visit Provider Nurse Practitioner Family
DX: I70.201 Unspecified atherosclerosis of native arteries of extremities, right leg (principal); I25.10 Atherosclerotic heart disease of native coronary artery without angina pectoris; I15.0 Renovascular hypertension
CPT/HCPCS: 36415; 75635; 82565; 84520; Q9967